=== PATIENT | male | born 1975 | race Asian ===

== ENCOUNTER 2018-08-28 04:00 | Inpatient (IN) | payer MEDICAID, OTHER ==
[~2018-08-28] VITALS: Ht 180.3 cm; Wt 172.4 kg
[~2018-08-28 04:00] MED LIST: ALLOPURINOL300 M1 ORAL; INDOMETHACIN75 MG ORAL; MEDROL DOSEPAK4 MG ORAL; NICODERM 21MG/241 EA TDERMAL; NORCO 5-325 TA1 EACH ORAL; RANITIDINE HCL150 MG ORAL
[2018-08-28 04:26] VITALS: BP 123/81
[2018-08-28] MEDS ORDERED: HYDROmorphone 1mg/ml Carpuject IVP ONE (04:45)
[2018-08-28 05:40] LABS: ANION GAP 7 mmol/L (5-15); BLOOD UREA NITROGEN 7 mg/dL (7-18); CALCIUM 8.2 MG/DL (8.5-10.1); CARBON DIOXIDE 27 MMOL/L (21-32); CHLORIDE 101 MMOL/L (98-107); CREATININE 0.7 MG/DL (0.55-1.30); POTASSIUM 3.6 MMOL/L (3.5-5.1); SODIUM 135 MMOL/L (136-145)
[2018-08-28 05:44] LABS: ALANINE AMINOTRANSFERASE 19 U/L (12-78); ALBUMIN 1.6 G/DL (3.4-5.0); ALKALINE PHOSPHATASE 88 U/L (46-116); ASPARTATE AMINO TRANSFERASE 16 U/L (15-37); BASOPHILS % (AUTO) 1.2 % (0.0-2.0); BILIRUBIN,TOTAL 0.8 MG/DL (0.2-1.0); EOSINOPHILS % (AUTO) 2.6 % (0.0-3.0); HEMATOCRIT 44.2 % (42.0-52.0); HEMOGLOBIN 14.8 G/DL (14.2-18.0); MEAN CORPUSCULAR VOLUME 90 FL (80-99); MONOCYTES % (AUTO) 9.1 % (1.0-10.0); NEUTROPHILS % (AUTO) 65.1 % (45.0-75.0); PLATELET COUNT 314 K/UL (150-450); RED BLOOD COUNT 4.92 M/UL (4.70-6.10); WHITE BLOOD COUNT 12.4 K/UL (4.8-10.8)
[2018-08-28] MEDS ORDERED: Solu-MEDROL 125mg Inj IVP ONE (06:30)
[2018-08-28] MEDS ORDERED: Indomethacin 75 MG CAPSULE.ER ORAL ONE (06:30)
[2018-08-28] MEDS ORDERED: Piperacillin/Tazobactam 3.375 GM in NS 110 ML IVPB ONE (06:30)
[2018-08-28] MEDS ORDERED: Indomethacin 25mg cap ONE (06:36)
--- NOTE | 2018-08-28 06:39 | Emergency Room Report ---
History of Present Illness General Chief Complaint: Edema Source: Patient Present Illness HPI 43-year-old male presents ED for evaluation. Complaining of bilateral leg pain and swelling. Started last night. History of gout. States that he has history of gout in both ankles. States he's experiencing a flareup. Pain is sharp, 10 out of 10, nonradiating. Patient states that he was taken off indomethacin by his PMD. Patient states it is too painful to walk at this time. Denies fevers chills. No other aggravating relieving factors. Denies any other associated symptoms Allergies: Coded Allergies: NO KNOWN ALLERGIES (Unverified Allergy, Unknown, 07/06/15) Patient History Past Medical History: HTN, other - gout Past Surgical History: none Pertinent Family History: none Social History: Denies: smoking, alcohol use, drug use Reviewed Nursing Documentation: PMH: Agreed; PSxH: Agreed Nursing Documentation-PMH Hx Cardiac Problems: Yes - HTN Hx Hypertension: Yes Review of Systems All Other Systems: negative except mentioned in HPI Physical Exam Vital Signs Date Time Temp Pulse Resp B/P (MAP) Pulse Ox O2 Delivery O2 Flow Rate FiO2 08/28/18 04:19 98.1 127 18 120/80 99 Room Air Sp02 EP Interpretation: reviewed, normal General Appearance: alert, GCS 15, non-toxic, mild distress, obese Head: normocephalic, atraumatic Eyes: bilateral eye normal inspection, bilateral eye PERRL ENT: hearing grossly normal, normal pharynx, no angioedema, normal voice Neck: full range of motion, supple/symm/no masses Respiratory: chest non-tender, lungs clear, normal breath sounds, speaking full sentences Cardiovascular #1: regular rate, rhythm, no edema Cardiovascular #2: 2+ carotid (R), 2+ carotid (L), 2+ radial (R), 2+ radial (L) , 2+ dorsalis pedis (R), 2+ dorsalis pedis (L) Gastrointestinal: normal bowel sounds, non tender, soft, non-distended, no guarding, no rebound Rectal: deferred Genitourinary: normal inspection, no CVA tenderness Musculoskeletal: back normal, gait/station normal, normal range of motion, swelling, tender Neurologic: alert, oriented x3, responsive, motor strength/tone normal, sensory intact, speech normal Psychiatric: judgement/insight normal, memory normal, mood/affect normal, no suicidal/homicidal ideation Reflexes: 3+ bicep (R), 3+ bicep (L), 3+ tricep (R), 3+ tricep (L), 3+ knee (R) , 3+ knee (L) Skin: other - bialteral lower extremity erythema Lymphatic: no adenopathy Medical Decision Making Diagnostic Impression: Primary Impression: Gouty arthritis Additional Impressions: Gout flare Qualified Codes: M10.9 - Gout, unspecified Intractable pain Unable to ambulate ER Course Hospital Course 43-year-old male presents to ED with redness, swelling to bilateral lower extermities Differential diagnoses include: Cellulitis, DVT, abscess, rash. Clinical course Patient placed on stretcher. After initial history and physical I ordered labs , blood Cx, pain meds labs reviewed - leukocytosis, Hb/Hct stable, no electrolyte abnormalities. CRP elevated. ESR pending. Uric acid normal Doppler US - pending (also ordered in 2015 however were negative at the time) antibiotics given. Leukocytosis likely secondary to pain. Patient admitted here in 2014 for similar presentation. Patient given IV Dilaudid, Solu-Medrol, indomethacin here. patient still unable to ambulate secondary to pain Case discussed with Dr Phan and he agreed to accept the patient to his service for further care and support Diagnosis - gouty arthritis, gout flare, intractable pain, unable to ambulate Patient admitted to floor in serious condition Labs Test 08/28/18 05:00 White Blood Count 12.4 K/UL (4.8-10.8) Red Blood Count 4.92 M/UL (4.70-6.10) Hemoglobin 14.8 G/DL (14.2-18.0) Hematocrit 44.2 % (42.0-52.0) Mean Corpuscular Volume 90 FL (80-99) Mean Corpuscular Hemoglobin 30.0 PG (27.0-31.0) Mean Corpuscular Hemoglobin Concent 33.4 G/DL (32.0-36.0) Red Cell Distribution Width 13.0 % (11.6-14.8) Platelet Count 314 K/UL (150-450) Mean Platelet Volume 5.9 FL (6.5-10.1) Neutrophils (%) (Auto) 65.1 % (45.0-75.0) Lymphocytes (%) (Auto) 22.0 % (20.0-45.0) Monocytes (%) (Auto) 9.1 % (1.0-10.0) Eosinophils (%) (Auto) 2.6 % (0.0-3.0) Basophils (%) (Auto) 1.2 % (0.0-2.0) Sodium Level 135 MMOL/L (136-145) Potassium Level 3.6 MMOL/L (3.5-5.1) Chloride Level 101 MMOL/L (98-107) Carbon Dioxide Level 27 MMOL/L (21-32) Anion Gap 7 mmol/L (5-15) Blood Urea Nitrogen 7 mg/dL (7-18) Creatinine 0.7 MG/DL (0.55-1.30) Estimat Glomerular Filtration Rate > 60 mL/min (>60) Glucose Level 113 MG/DL (74-106) Uric Acid 5.1 MG/DL (2.6-7.2) Calcium Level 8.2 MG/DL (8.5-10.1) Total Bilirubin 0.8 MG/DL (0.2-1.0) Aspartate Amino Transf (AST/SGOT) 16 U/L (15-37) Alanine Aminotransferase (ALT/SGPT) 19 U/L (12-78) Alkaline Phosphatase 88 U/L (46-116) C-Reactive Protein, Quantitative 15.3 mg/dL (0.00-0.90) Total Protein 6.5 G/DL (6.4-8.2) Albumin 1.6 G/DL (3.4-5.0) Globulin 4.9 g/dL Last Vital Signs Date Time Temp Pulse Resp B/P (MAP) Pulse Ox O2 Delivery O2 Flow Rate FiO2 08/28/18 04:19 98.1 127 18 120/80 99 Room Air Status: improved Disposition: ADMITTED INPATIENT Condition: Serious Referrals: [facility],REFERRING (PCP) Adan Sharp MD Aug 28, 2018 06:39
[2018-08-28 07:25] VITALS: BP 130/82
[2018-08-28 08:00] VITALS: BP 123/82
[2018-08-28] MEDS ORDERED: Miralax 17gm pkt ORAL PRN (08:15)
--- NOTE | 2018-08-28 08:36 | History and Physical ---
History of Present Illness General Date patient seen: Aug 28, 2018 Time patient seen: 07:30 Reason for Hospitalization: Edema Present Illness HPI 43 year old man with obesity, nephrotic syndrome, gout who presents with bilateral ankle pain, progressing for 1 week, similar to prior gout flares. Pain is severe 10/10 causing inability to ambulate. He reports subjective fever related to pain. He reports being taken off indomethacin 1 month ago by his doctor due to concern for side effects. In ED he was given Solu-Medrol, Zosyn, Indocin and referred for admission. PMHx: Obesity, nephrotic syndrome Social: Current smoker Family Hx: No history of CAD, stroke Allergies: Coded Allergies: NO KNOWN ALLERGIES (Unverified Allergy, Unknown, 07/06/15) Medication History Scheduled Allopurinol* (Allopurinol*), 300 MG ORAL DAILY Indomethacin* (Indomethacin*), 75 MG ORAL TWICE A DAY Methylprednisolone (Methylprednisolone*), 4 MG ORAL .as directed Nicotine (Nicotine Patch), 1 PATCH TDERMAL Q24H Ranitidine Hcl* (Zantac*), 150 MG ORAL BEDTIME Scheduled PRN Hydrocodone Bit/Acetaminophen 5-325* ([place] 5-325*), 1 TAB ORAL Q6H PRN for For Pain Patient History Healthcare decision maker Resuscitation status Advanced Directive on File Review of Systems Constitutional: Reports: fever Eye: Denies: eye pain ENT: Denies: ear pain Respiratory: Denies: cough, orthopnea, shortness of breath Cardiovascular: Denies: chest pain Gastrointestinal: Denies: abdominal pain Genitourinary: Denies: discharge, dysuria Musculoskeletal: Reports: gout; Denies: back pain Skin: Denies: rash Psychiatric: Denies: anxiety Neurological: Denies: headache, numbness Hematologic/Lymphatic: Denies: anemia Physical Exam General Appearance: no apparent distress, alert HEENT: normocephalic, atraumatic Neck: non-tender, normal alignment Respiratory/Chest: chest wall non-tender, lungs clear, normal breath sounds Cardiovascular/Chest: normal peripheral pulses, normal rate, regular rhythm Abdomen: normal bowel sounds, non tender Extremities: other - Bilateral ankle edema and tenderness Skin Exam: warm/dry Neurologic: pest controller II-XII grossly normal, no motor/sensory deficits Last 24 Hour Vital Signs Date Time Temp Pulse Resp B/P (MAP) Pulse Ox O2 Delivery O2 Flow Rate FiO2 08/28/18 07:40 98.1 108 18 130/82 99 Room Air 08/28/18 07:25 98.1 108 18 130/82 99 Room Air 08/28/18 05:54 98.1 08/28/18 04:26 98.1 120 18 123/81 99 Room Air 120 08/28/18 04:26 120 18 Room Air 08/28/18 04:19 98.1 127 18 120/80 99 Room Air Laboratory Tests Test 08/28/18 05:00 White Blood Count 12.4 K/UL (4.8-10.8) H Red Blood Count 4.92 M/UL (4.70-6.10) Hemoglobin 14.8 G/DL (14.2-18.0) Hematocrit 44.2 % (42.0-52.0) Mean Corpuscular Volume 90 FL (80-99) Mean Corpuscular Hemoglobin 30.0 PG (27.0-31.0) Mean Corpuscular Hemoglobin Concent 33.4 G/DL (32.0-36.0) Red Cell Distribution Width 13.0 % (11.6-14.8) Platelet Count 314 K/UL (150-450) Mean Platelet Volume 5.9 FL (6.5-10.1) L Neutrophils (%) (Auto) 65.1 % (45.0-75.0) Lymphocytes (%) (Auto) 22.0 % (20.0-45.0) Monocytes (%) (Auto) 9.1 % (1.0-10.0) Eosinophils (%) (Auto) 2.6 % (0.0-3.0) Basophils (%) (Auto) 1.2 % (0.0-2.0) Erythrocyte Sedimentation Rate 23 MM/HR (0-15) H Sodium Level 135 MMOL/L (136-145) L Potassium Level 3.6 MMOL/L (3.5-5.1) Chloride Level 101 MMOL/L (98-107) Carbon Dioxide Level 27 MMOL/L (21-32) Anion Gap 7 mmol/L (5-15) Blood Urea Nitrogen 7 mg/dL (7-18) Creatinine 0.7 MG/DL (0.55-1.30) Estimat Glomerular Filtration Rate > 60 mL/min (>60) Glucose Level 113 MG/DL (74-106) H Uric Acid 5.1 MG/DL (2.6-7.2) Calcium Level 8.2 MG/DL (8.5-10.1) L Total Bilirubin 0.8 MG/DL (0.2-1.0) Aspartate Amino Transf (AST/SGOT) 16 U/L (15-37) Alanine Aminotransferase (ALT/SGPT) 19 U/L (12-78) Alkaline Phosphatase 88 U/L (46-116) C-Reactive Protein, Quantitative 15.3 mg/dL (0.00-0.90) H Total Protein 6.5 G/DL (6.4-8.2) Albumin 1.6 G/DL (3.4-5.0) L Globulin 4.9 g/dL Height (Feet): 5 Height (Inches): 11.00 Weight (Pounds): 380 Assessment/Plan Assessment/Plan #Acute gouty arthritis -admit to medical service -start prednisone 20mg PO bid -continue allopurinol -avoid NSAIDS given history of renal disease -supportive care -Dilaudid for severe pain. -hold antibiotics as lower suspicion for cellulitis #Reported nephrotic syndrome #Obesity -continue to monitor renal function VTE PPx heparin SC Full Code I spent 70 minutes on this patient's case, and~37~minutes was dedicated to counseling and/or care coordination. Jey Gr MD Aug 28, 2018 08:36
[2018-08-28] MEDS: Docusate 100mg cap ORAL SCH ×2 (09:27→20:20)
[2018-08-28] MEDS: Heparin 5000 units/ml inj SUBQ SCH ×2 (09:37→20:20)
[2018-08-28 12:00] VITALS: BP 124/67
[2018-08-28 16:00] VITALS: BP 132/89
[2018-08-28 20:00] VITALS: BP 123/62
[2018-08-29] VITALS: BP 142/80
[2018-08-29 04:00] VITALS: BP 150/60
[2018-08-29 07:09] LABS: HEMATOCRIT 43.2 % (42.0-52.0); HEMOGLOBIN 14.6 G/DL (14.2-18.0); MEAN CORPUSCULAR VOLUME 89 FL (80-99); PLATELET COUNT 347 K/UL (150-450); RED BLOOD COUNT 4.84 M/UL (4.70-6.10); RED CELL DISTRIBUTION WIDTH 12.8 % (11.6-14.8); WHITE BLOOD COUNT 17.9 K/UL (4.8-10.8)
[2018-08-29 07:13] LABS: ANION GAP 8 mmol/L (5-15); CALCIUM 9.2 MG/DL (8.5-10.1); CARBON DIOXIDE 26 MMOL/L (21-32); CHLORIDE 102 MMOL/L (98-107); POTASSIUM 4.6 MMOL/L (3.5-5.1); SODIUM 136 MMOL/L (136-145)
[2018-08-29 07:26] LABS: BLOOD UREA NITROGEN 26 mg/dL (7-18)
[2018-08-29 08:00] VITALS: BP 96/60
[2018-08-29] MEDS: Docusate 100mg cap ORAL SCH (08:19)
[2018-08-29] MEDS: HYDROmorphone 1mg/ml Carpuject IVP PRN ×2 (08:20→15:10)
[2018-08-29] MEDS: Heparin 5000 units/ml inj SUBQ SCH (08:29)
[2018-08-29] MEDS ORDERED: Artificial Tears 1.4% Op Soln BOTH EYES PRN (08:30)
[2018-08-29 12:00] VITALS: BP 126/75
--- NOTE | 2018-08-29 15:27 | Discharge Summary ---
Discharge Summary Hospital Course Date of Admission Aug 28, 2018 at 05:47 Date of Discharge 08/29/18 Admitting Diagnosis gouty flare, intractable pain HPI Deonte Grider is a 43 year old male who was admitted on Aug 28, 2018 at 05:47 for Gouty Flare,Intractable Pain Hospital Course #Acute gouty arthritis -admitted to medical service -treated with prednisone 20mg PO bid with rapid improvement in symptoms -continued allopurinol -avoided NSAIDS given history of renal disease -supportive care -Dilaudid for severe pain -> transitioned to Percocet #Reported nephrotic syndrome #Obesity -stable renal function Stable for discharge home Discharge Discharge Disposition Patient was discharged to Jey Gr MD Aug 29, 2018 15:27
[2018-08-29 16:00] VITALS: BP 96/75
== END 2018-08-29 16:32 | disposition home or self-care (01) | DRG 351 ==
LOC: EMR 04:31 → 4E 05:47 → EDBEDREQ 06:07
DX: M10.9 Gout, unspecified (principal); Z68.43 Body mass index [BMI] 50.0-59.9, adult; E66.9 Obesity, unspecified
CPT/HCPCS: 36415; 80048; 80053; 84550; 85007; 85025; 85651; 86140; 87040; 93970

== ENCOUNTER 2018-10-02 17:54 | Inpatient (IN) | payer OTHER ==
[~2018-10-02] VITALS: Ht 177.8 cm; Wt 160.6 kg
--- NOTE | 2018-10-02 18:12 | NUR ---
ED Nurse Note: PT WALKED IN TO ER TODAY FROM HOME. AOX4. PT C/O UPPER MEDIAL ABDOMINAL PAIN, 02/28, X THIS AM. PT ALSO C/O NAUSEA BUT DENIES VOMITING. PT STATES HE HAS ALSO HAD 2 EPSIDOES OF DIARRHEA X LAST NIGHT, LAST EPISODE X 2 HOURS AGO. ACTIVE BOWEL SOUNDS IN ALL QUADRANTS. ABDOMEN NONDISTENDED AND NONTENDER TO PALPATION.
[2018-10-02 18:13] VITALS: BP 136/88
[2018-10-02] MEDS ORDERED: Metoclopramide 10mg/2ml Inj IVP ONE (18:15)
[2018-10-02] MEDS ORDERED: Morphine Sulfate 4mg/ml Inj (IV USE ONLY) IVP ONE (18:15)
[2018-10-02] MEDS ORDERED: DiphenhydrAMINE 50mg/ml Inj IVP ONE (18:15)
[2018-10-02 18:53] LABS: BASOPHILS % (AUTO) 1.7 % (0.0-2.0); EOSINOPHILS % (AUTO) 0.8 % (0.0-3.0); HEMATOCRIT 41.6 % (42.0-52.0); HEMOGLOBIN 13.8 G/DL (14.2-18.0); LYMPHOCYTES % (AUTO) 30.6 % (20.0-45.0); MEAN CORPUSCULAR VOLUME 89 FL (80-99); MONOCYTES % (AUTO) 7.6 % (1.0-10.0); NEUTROPHILS % (AUTO) 59.4 % (45.0-75.0); PLATELET COUNT 408 K/UL (150-450); WHITE BLOOD COUNT 12.3 K/UL (4.8-10.8)
[2018-10-02] MEDS: Sodium Chloride 550 ML IV SCH ×2 (18:55→20:35)
[2018-10-02 19:00] LABS: ANION GAP 3 mmol/L (5-15); BLOOD UREA NITROGEN 37 mg/dL (7-18); CALCIUM 7.9 MG/DL (8.5-10.1); CARBON DIOXIDE 28 MMOL/L (21-32); CHLORIDE 104 MMOL/L (98-107); CREATININE 1.2 MG/DL (0.55-1.30); POTASSIUM 4.2 MMOL/L (3.5-5.1); SODIUM 135 MMOL/L (136-145)
[2018-10-02 19:04] LABS: ALANINE AMINOTRANSFERASE 16 U/L (12-78); ALBUMIN/GLOBULIN RATIO 0.2 (1.0-2.7); ALKALINE PHOSPHATASE 74 U/L (46-116); ASPARTATE AMINO TRANSFERASE 30 U/L (15-37); BILIRUBIN,TOTAL 0.2 MG/DL (0.2-1.0); CREATINE KINASE 117 U/L (26-308)
--- NOTE | 2018-10-02 20:09 | Emergency Room Report ---
History of Present Illness General Chief Complaint: Abdominal Pain Source: Patient, Medical Record Present Illness HPI Patient presents with severe epigastric pain. The patient has a history of nephrotic syndrome. He states that he has had episodes of abdominal pain like this in the past related to his nephrotic syndrome. Denies any vomiting but he feels nauseated.. He's had constipation that he states today there was tenderness slight amount of blood. He denies fevers. In the past the patient had a clots in his legs. He only takes aspirin at this time. He denies any hemoptysis or pleuritic chest pain. He does have increased edema over the last few days. Patient admitted last month for flare of gout pain. Admitted 2015: 1. Acute gout attack 2. Gouty arthritis. 3. Intractable pain, right ankle. 4. Leukocytosis secondary to gout flare. 5. Hypertension. 6. Inability to ambulate, improved. 7. Cigarette smoker. 8. Obstructive sleep apnea. Allergies: Coded Allergies: NO KNOWN ALLERGIES (Unverified Allergy, Unknown, 07/06/15) Patient History Past Medical History: see triage record Social History: Reports: drug use Reviewed Nursing Documentation: PMH: Agreed; PSxH: Agreed Nursing Documentation-PMH Past Medical History: No History, Except For Hx Cardiac Problems: Yes - HTN Hx Hypertension: Yes Hx Neurological Problems: No - gout Review of Systems All Other Systems: negative except mentioned in HPI Physical Exam Vital Signs Date Time Temp Pulse Resp B/P (MAP) Pulse Ox O2 Delivery O2 Flow Rate FiO2 10/02/18 17:59 97.5 111 18 139/86 98 Room Air Sp02 EP Interpretation: reviewed, normal General Appearance: mild distress - Due to pain, obese Head: normocephalic Eyes: bilateral eye normal inspection, bilateral eye PERRL, bilateral eye EOMI ENT: moist mucus membranes Neck: supple Respiratory: lungs clear, normal breath sounds Cardiovascular #1: regular rate, rhythm, edema - Bilaterally 2-3+ Cardiovascular #2: 2+ radial (R) Gastrointestinal: normal inspection, normal bowel sounds, non-distended, no guarding, no rebound, tenderness - Epigastric, overweight Genitourinary: no CVA tenderness Musculoskeletal: back normal, normal range of motion, no calf tenderness, Ashok 's Sign negative Neurologic: alert, oriented x3, grossly normal Psychiatric: anxious Skin: warm/dry, other - Erythema bilateral ankles Medical Decision Making Diagnostic Impression: Primary Impression: Abdominal pain Qualified Codes: R10.13 - Epigastric pain Additional Impressions: Nephrotic syndrome Edema Qualified Codes: R60.9 - Edema, unspecified Elevated uric acid in blood BMI 50.0-59.9, adult ER Course Patient presents with epigastric pain. Differential includes gastritis, pancreatitis, GERD, diverticulitis amongst others. We need to exclude cardiac cause. Evaluation with EKG, chest x-ray and labs. We need to exclude pulmonary embolism and DVT with noninvasive vascular studies. The patient will be treated with gentle IV hydration and analgesia. Treated with Reglan and Pepcid. Difficult and complex patient due to multiple underlying disease processes and morbid obesity. EKG without injury. Chest x-ray no infiltrates and normal heart size. Labs with elevated white count. Elevated uric acid. Low protein/albumin. Patient sleeping after initial dose of morphine. Abdomen is nonsurgical at this time. Patient diuresing. He requests more morphine. Small dose is given. Patient sleeping after second dose of morphine. Patient admitted to medical floor Dr. Cohen. Laboratory Tests Test 10/02/18 18:29 10/02/18 21:19 10/02/18 21:20 White Blood Count 12.3 K/UL (4.8-10.8) H Red Blood Count 4.70 M/UL (4.70-6.10) Hemoglobin 13.8 G/DL (14.2-18.0) L Hematocrit 41.6 % (42.0-52.0) L Mean Corpuscular Volume 89 FL (80-99) Mean Corpuscular Hemoglobin 29.4 PG (27.0-31.0) Mean Corpuscular Hemoglobin Concent 33.2 G/DL (32.0-36.0) Red Cell Distribution Width 13.0 % (11.6-14.8) Platelet Count 408 K/UL (150-450) Mean Platelet Volume 4.5 FL (6.5-10.1) L Neutrophils (%) (Auto) 59.4 % (45.0-75.0) Lymphocytes (%) (Auto) 30.6 % (20.0-45.0) Monocytes (%) (Auto) 7.6 % (1.0-10.0) Eosinophils (%) (Auto) 0.8 % (0.0-3.0) Basophils (%) (Auto) 1.7 % (0.0-2.0) Sodium Level 135 MMOL/L (136-145) L Potassium Level 4.2 MMOL/L (3.5-5.1) Chloride Level 104 MMOL/L (98-107) Carbon Dioxide Level 28 MMOL/L (21-32) Anion Gap 3 mmol/L (5-15) L Blood Urea Nitrogen 37 mg/dL (7-18) H Creatinine 1.2 MG/DL (0.55-1.30) Estimate Glomerular Filtration Rate > 60 mL/min (>60) Glucose Level 121 MG/DL (74-106) H Uric Acid 11.3 MG/DL (2.6-7.2) H Calcium Level 7.9 MG/DL (8.5-10.1) L Total Bilirubin 0.2 MG/DL (0.2-1.0) Aspartate Amino Transferase (AST) 30 U/L (15-37) Alanine Aminotransferase (ALT) 16 U/L (12-78) Alkaline Phosphatase 74 U/L (46-116) Total Creatine Kinase 117 U/L (26-308) Troponin I 0.001 ng/mL (0.000-0.056) Total Protein 5.2 G/DL (6.4-8.2) L Albumin 1.0 G/DL (3.4-5.0) L Globulin 4.2 g/dL Albumin/Globulin Ratio 0.2 (1.0-2.7) L Lipase 201 U/L (73-393) Urine Color Pale yellow Urine Appearance Clear Urine pH 5 (4.5-8.0) Urine Specific [place] 1.015 (1.005-1.035) Urine Protein 4+ (NEGATIVE) H Urine Glucose (UA) Negative (NEGATIVE) Urine Ketones Negative (NEGATIVE) Urine Blood Negative (NEGATIVE) Urine Nitrite Negative (NEGATIVE) Urine Bilirubin Negative (NEGATIVE) Urine Urobilinogen Normal MG/DL (0.0-1.0) Urine Leukocyte Esterase Negative (NEGATIVE) Urine RBC 0-2 /HPF (0 - 0) H Urine WBC 0-2 /HPF (0 - 0) Urine Squamous Epithelial Cells None /LPF (NONE/OCC) Urine Bacteria Moderate /HPF (NONE) H Prothrombin Time 10.0 SEC (9.30-11.50) Prothrombin Time INR 0.9 (0.9-1.1) PTT 32 SEC (23-33) EKG Diagnostic Results Rate: tachycardiac Rhythm: NSR ST Segments: no acute changes Rhythm Strip Diag. Results EP Interpretation: yes Rhythm: no PVC's, no ectopy, other - ST Chest X-Ray Diagnostic Results Chest X-Ray Diagnostic Results : Chest X-Ray Ordered: Yes # of Views/Limited/Complete: 1 View Indication: Other Interpretation: no consolidation, no effusion, no pneumothorax Impression: No acute disease Electronically Signed by: Electronically signed by Caesar Salinas MD Last Vital Signs Date Time Temp Pulse Resp B/P (MAP) Pulse Ox O2 Delivery O2 Flow Rate FiO2 10/02/18 18:13 104 20 Room Air 10/02/18 18:13 97.9 136/88 99 Status: improved Disposition: ADMITTED INPATIENT Condition: Serious Referrals: [facility],REFERRING (PCP) Caesar Salinas MD Oct 02, 2018 20:09
[2018-10-02 20:13] VITALS: BP 132/86
[2018-10-02] MEDS ORDERED: PREDNISONE20 MG ORAL (20:13)
--- NOTE | 2018-10-02 20:29 | NUR ---
ED Nurse Note: LAB CALLED FOR BLOOD DRAW. ETA 15 MINUTES.
--- NOTE | 2018-10-02 21:29 | NUR ---
ED Nurse Note: [facility] CALLED FOR PT TRANSFER. REPORT GIVEN TO IRMA KELLEY. PER RN, ROOM NEEDS 30-40 MORE MINUTES FOR CLEANING. WILL TRANSFER PT AT THAT TIME.
[2018-10-02] MEDS ORDERED: Morphine Sulfate 2mg/ml Inj(IV/IM USE ONLY) IVP ONE (21:30)
--- NOTE | 2018-10-02 21:38 | NUR ---
ED Nurse Note: REPORT GIVEN TO IRMA GOLD. IRMA GOLD AWARE REPORT ALREADY GIVEN TO IRMA KELLEY IN [facility].
[2018-10-02 21:54] LABS: APPEARANCE,URINE CLEAR; BILIRUBIN, URINE NEGATIVE (NEGATIVE); COLOR,URINE PALE YELLOW; GLUCOSE, URINE (UA) NEGATIVE (NEGATIVE); KETONES,URINE NEGATIVE (NEGATIVE); LEUKOCYTE ESTERASE ,URINE NEGATIVE (NEGATIVE); NITRITE,URINE NEGATIVE (NEGATIVE); PH,URINE 5 (4.5-8.0); PROTEIN,URINE 4+ (NEGATIVE); UROBILINOGEN,URINE NORMAL MG/DL (0.0-1.0)
[2018-10-02 22:18] LABS: INR 0.9 (0.9-1.1)
--- NOTE | 2018-10-02 22:30 | NUR ---
NURSE NOTES: Patient admitted from Er via gurney. Belongings verified. Patient is drowsy but aox4, arousable. IV is intact and patent. Skin intact except for old scars on bilateral lower extremities with edema. Oriented to new room and unit. Call light provided, urinal provided. Instructed to call for assistance.
[2018-10-02] MEDS ORDERED: INDOCIN75 MG ORAL (22:36)
[2018-10-02] MEDS ORDERED: ASPIRIN81 MG ORAL (22:36)
[2018-10-02] MEDS ORDERED: Morphine Sulfate 2mg/ml Inj(IV/IM USE ONLY) IVP PRN (23:15)
--- NOTE | 2018-10-02 23:15 | NUR ---
NURSE NOTES: Call placed to Dr. Cohen for admission orders at 2240. Received admission orders at 2315, read back. Will carry out orders. Patient currently sleeping with no acute distress
--- NOTE | 2018-10-02 23:50 | NUR ---
TRANSFER TO FLOOR: Patient transferred to [facility] surg, Report given to IRMA Aaron
[2018-10-03] VITALS: BP 108/75
[2018-10-03 04:00] VITALS: BP 114/67
[2018-10-03] MEDS: Morphine Sulfate 4mg/ml Inj (IV USE ONLY) IVP PRN ×2 (05:00→21:12)
--- NOTE | 2018-10-03 06:15 | NUR ---
NURSE NOTES: Patient c/o pain and requested for pain medication at 0500. morphine was pulled out but patient c/o pain on IV site. Multiple attempts were made by 3 RN's to start a new IV, unsuccessful. Patient went back to sleep and appears comfortable at this time. Will ask ICU/WOLF nurse to help with IV insertion.
[2018-10-03 07:04] LABS: ALANINE AMINOTRANSFERASE 17 U/L (12-78); ALBUMIN 1.1 G/DL (3.4-5.0); ALBUMIN/GLOBULIN RATIO 0.3 (1.0-2.7); ALKALINE PHOSPHATASE 70 U/L (46-116); ANION GAP 2 mmol/L (5-15); ASPARTATE AMINO TRANSFERASE 28 U/L (15-37); BILIRUBIN,TOTAL 0.2 MG/DL (0.2-1.0); BLOOD UREA NITROGEN 34 mg/dL (7-18); CALCIUM 7.9 MG/DL (8.5-10.1); CARBON DIOXIDE 30 MMOL/L (21-32); CHLORIDE 104 MMOL/L (98-107); CREATININE 1.1 MG/DL (0.55-1.30); POTASSIUM 4.4 MMOL/L (3.5-5.1); SODIUM 136 MMOL/L (136-145)
--- NOTE | 2018-10-03 07:10 | NUR ---
NURSE NOTES: Report received from outgoing RN, rounds made. Patient sleeping in semi-fowlers position in bed. No distress or SOB on RA. Left wrist heplock intact. Call light in reach, bed in lowest position. Will continue to monitor.
[2018-10-03 07:15] LABS: BASOPHILS % (AUTO) 1.4 % (0.0-2.0); EOSINOPHILS % (AUTO) 2.1 % (0.0-3.0); HEMATOCRIT 41.1 % (42.0-52.0); HEMOGLOBIN 13.7 G/DL (14.2-18.0); LYMPHOCYTES % (AUTO) 35.1 % (20.0-45.0); MEAN CORPUSCULAR VOLUME 90 FL (80-99); MONOCYTES % (AUTO) 11.3 % (1.0-10.0); NEUTROPHILS % (AUTO) 50.2 % (45.0-75.0); PLATELET COUNT 428 K/UL (150-450); RED BLOOD COUNT 4.59 M/UL (4.70-6.10); RED CELL DISTRIBUTION WIDTH 13.8 % (11.6-14.8); WHITE BLOOD COUNT 9.8 K/UL (4.8-10.8)
--- NOTE | 2018-10-03 07:37 | NUR ---
HAND-OFF: Report given to Sheyla SOLIS.
[2018-10-03 08:00] VITALS: BP 151/85
[2018-10-03] MEDS ORDERED: Heparin1,000 units/500ml Premix(Conc:2 units/ml) IV ONE (08:00)
[2018-10-03] MEDS ORDERED: Lidocaine 1% Plain 30 ml INJ ONE (08:00)
--- NOTE | 2018-10-03 08:41 | NUR ---
*-* INSURANCE *-* AVAILABLE CLINICALS HAVE BEE FAXED TO: [facility]:NIRANJAN P:[phone] F:[phone] Addendum: 10/03/18 at 0843 by RICH HENRY CM REF# [id number]
[2018-10-03] MEDS: Heparin 5000 units/ml inj SUBQ SCH ×3 (09:00→21:25)
[2018-10-03] MEDS: Aspirin Baby 81mg ORAL SCH ×2 (09:00→10:44)
--- NOTE | 2018-10-03 10:13 | Diagnostic Imaging Report ---
Indication: Bilateral leg pain Technique: Grayscale duplex images of the bilateral lower extremity veins Comparison: 08/28/2018 Findings: Exam is somewhat limited, as the calf veins could not be imaged due to patient body habitus and edema. Bilaterally, grayscale duplex images demonstrate no evidence of intraluminal thrombus. Normal phasic Doppler waveforms, demonstrating normal augmentation response and no evidence of valvular insufficiency. Normal compressibility of all deep venous structures. Impression: Negative for evidence of deep venous thrombosis bilaterally. Note inability to visualize the calf veins This agrees with the preliminary interpretation provided overnight by [facility] teleradiology service.
--- NOTE | 2018-10-03 11:40 | Diagnostic Imaging Report ---
Indication: Chest pain Technique: One view of the chest Comparison: none Findings: Lungs and pleural spaces are clear. Heart size is upper limits of normal. Impression: No acute process
--- NOTE | 2018-10-03 11:45 | Diagnostic Imaging Report ---
Indications: Needs long-term IV access Technique: Ultrasound confirms patent compressible left basilic left basilic vein. Total sterile technique, including sterile probe cover and sterile gel, hat, mask, sterile gown, large sterile drape, and preparation with 2% chlorhexidine utilized. Local anesthesia with 1% lidocaine. Under real-time ultrasound guidance, puncture basilic vein using 21-gauge needle, documented and archived, passage 0.018 guidewire under direct fluoroscopy, which was used to determine appropriate catheter length, exchange for 4 [place] peel-away sheath. 4 [place] Bard dual-lumen power PICC cut to 55 cm. It was inserted through the peel-away sheath. Peel-away sheath and guidewire removed. Catheter fixed to the skin. Both catheter ports aspirated and flushed. Patient tolerated procedure well, without immediate complication. Digital radiograph documents satisfactory catheter tip position, at the cavoatrial junction. Total fluoroscopy time 13.7 seconds . Total dose 3.12 mGy Total number of images: 1 Impression: Successful placement of left arm PICC under sonographic and fluoroscopic guidance, as described above.
[2018-10-03 12:00] VITALS: BP 130/87
--- NOTE | 2018-10-03 13:35 | Consultation ---
History of Present Illness General Date patient seen: Oct 03, 2018 Chief Complaint: Abdominal Pain Present Illness HPI 43 year old male with hx of nephrotic syndrome, morbid obesity, gout, presented to ER with CC of intractable N/V and abdominal pain. No fever, No chills. no diarrhea. Pt is admitted for further work up. Allergies: Coded Allergies: NO KNOWN ALLERGIES (Unverified Allergy, Unknown, 07/06/15) Medication History Scheduled Aspirin* (Aspirin*), 81 MG ORAL DAILY, (Reported) Prednisone* (Prednisone*), 60 MG ORAL DAILY, (Reported) Scheduled PRN Indomethacin (Indocin), Unknown Dose ORAL DAILY PRN for For Pain, (Reported) Patient History Healthcare decision maker Resuscitation status Full Code Advanced Directive on File Past Medical/Surgical History Past Medical/Surgical History: (1) Nephrotic syndrome (2) Unable to ambulate (3) DIVYA (obstructive sleep apnea) Review of Systems All Other Systems: negative except mentioned in HPI Physical Exam General Appearance: WD/WN Lines, tubes and drains: peripheral, central line, trach HEENT: normocephalic, atraumatic Neck: non-tender, normal alignment Respiratory/Chest: chest wall non-tender, lungs clear Breasts: no masses Cardiovascular/Chest: normal rate, regular rhythm Abdomen: normal bowel sounds Genitourinary/Rectal: normal genital exam Last 24 Hour Vital Signs Date Time Temp Pulse Resp B/P (MAP) Pulse Ox O2 Delivery O2 Flow Rate FiO2 10/03/18 10:38 Room Air 10/03/18 09:00 Room Air 10/03/18 08:00 97.6 112 19 151/85 (107) 96 10/03/18 04:00 97.4 111 18 114/67 (83) 98 10/03/18 00:00 97.2 110 18 108/75 (86) 100 10/02/18 23:45 98.2 85 16 132/86 100 Room Air 10/02/18 22:52 Room Air 10/02/18 20:13 98.2 92 16 132/86 100 Room Air 10/02/18 18:13 104 20 Room Air 10/02/18 18:13 97.9 104 20 136/88 99 Room Air 10/02/18 17:59 97.5 111 18 139/86 98 Room Air Intake and Output 10/02/18 10/03/18 19:00 07:00 Intake Total 1100 ml Balance 1100 ml Intake IV Total 1100 ml # Voids 1 1 Laboratory Tests Test 10/02/18 18:29 10/02/18 21:19 10/02/18 21:20 10/03/18 06:15 White Blood Count 12.3 K/UL (4.8-10.8) H 9.8 K/UL (4.8-10.8) Red Blood Count 4.70 M/UL (4.70-6.10) 4.59 M/UL (4.70-6.10) L Hemoglobin 13.8 G/DL (14.2-18.0) L 13.7 G/DL (14.2-18.0) L Hematocrit 41.6 % (42.0-52.0) L 41.1 % (42.0-52.0) L Mean Corpuscular Volume 89 FL (80-99) 90 FL (80-99) Mean Corpuscular Hemoglobin 29.4 PG (27.0-31.0) 29.9 PG (27.0-31.0) Mean Corpuscular Hemoglobin Concent 33.2 G/DL (32.0-36.0) 33.3 G/DL (32.0-36.0) Red Cell Distribution Width 13.0 % (11.6-14.8) 13.8 % (11.6-14.8) Platelet Count 408 K/UL (150-450) 428 K/UL (150-450) Mean Platelet Volume 4.5 FL (6.5-10.1) L 5.0 FL (6.5-10.1) L Neutrophils (%) (Auto) 59.4 % (45.0-75.0) 50.2 % (45.0-75.0) Lymphocytes (%) (Auto) 30.6 % (20.0-45.0) 35.1 % (20.0-45.0) Monocytes (%) (Auto) 7.6 % (1.0-10.0) 11.3 % (1.0-10.0) H Eosinophils (%) (Auto) 0.8 % (0.0-3.0) 2.1 % (0.0-3.0) Basophils (%) (Auto) 1.7 % (0.0-2.0) 1.4 % (0.0-2.0) Sodium Level 135 MMOL/L (136-145) L 136 MMOL/L (136-145) Potassium Level 4.2 MMOL/L (3.5-5.1) 4.4 MMOL/L (3.5-5.1) Chloride Level 104 MMOL/L (98-107) 104 MMOL/L (98-107) Carbon Dioxide Level 28 MMOL/L (21-32) 30 MMOL/L (21-32) Anion Gap 3 mmol/L (5-15) L 2 mmol/L (5-15) L Blood Urea Nitrogen 37 mg/dL (7-18) H 34 mg/dL (7-18) H Creatinine 1.2 MG/DL (0.55-1.30) 1.1 MG/DL (0.55-1.30) Estimat Glomerular Filtration Rate > 60 mL/min (>60) > 60 mL/min (>60) Glucose Level 121 MG/DL (74-106) H 91 MG/DL (74-106) Uric Acid 11.3 MG/DL (2.6-7.2) H Calcium Level 7.9 MG/DL (8.5-10.1) L 7.9 MG/DL (8.5-10.1) L Total Bilirubin 0.2 MG/DL (0.2-1.0) 0.2 MG/DL (0.2-1.0) Aspartate Amino Transf (AST/SGOT) 30 U/L (15-37) 28 U/L (15-37) Alanine Aminotransferase (ALT/SGPT) 16 U/L (12-78) 17 U/L (12-78) Alkaline Phosphatase 74 U/L (46-116) 70 U/L (46-116) Total Creatine Kinase 117 U/L (26-308) Troponin I 0.001 ng/mL (0.000-0.056) Total Protein 5.2 G/DL (6.4-8.2) L 5.2 G/DL (6.4-8.2) L Albumin 1.0 G/DL (3.4-5.0) L 1.1 G/DL (3.4-5.0) L Globulin 4.2 g/dL 4.1 g/dL Albumin/Globulin Ratio 0.2 (1.0-2.7) L 0.3 (1.0-2.7) L Lipase 201 U/L (73-393) Urine Color Pale yellow Urine Appearance Clear Urine pH 5 (4.5-8.0) Urine Specific [place] 1.015 (1.005-1.035) Urine Protein 4+ (NEGATIVE) H Urine Glucose (UA) Negative (NEGATIVE) Urine Ketones Negative (NEGATIVE) Urine Blood Negative (NEGATIVE) Urine Nitrite Negative (NEGATIVE) Urine Bilirubin Negative (NEGATIVE) Urine Urobilinogen Normal MG/DL (0.0-1.0) Urine Leukocyte Esterase Negative (NEGATIVE) Urine RBC 0-2 /HPF (0 - 0) H Urine WBC 0-2 /HPF (0 - 0) Urine Squamous Epithelial Cells None /LPF (NONE/OCC) Urine Bacteria Moderate /HPF (NONE) H Prothrombin Time 10.0 SEC (9.30-11.50) Prothromb Time International Ratio 0.9 (0.9-1.1) Activated Partial Thromboplast Time 32 SEC (23-33) Phosphorus Level 4.0 MG/DL (2.5-4.9) Magnesium Level 1.9 MG/DL (1.8-2.4) Microbiology Date/Time Source Procedure Growth Status 10/02/18 21:19 Urine,Clean Catch Urine Culture - Preliminary NO GROWTH Resulted Height (Feet): 5 Height (Inches): 10.00 Weight (Pounds): 354 Medications Current Medications Medications (Trade) Dose Ordered Sig/Luca Route PRN Reason Start Time Stop Time Status Last Admin Dose Admin Acetaminophen (Tylenol) 650 mg Q6H PRN ORAL FEVER T>100.5 10/02/18 23:15 11/01/18 23:14 Aspirin (ASA) 81 mg DAILY ORAL 10/03/18 09:00 11/02/18 08:59 10/03/18 10:44 Chlorhexidine Gluconate (Dulce Maria-Hex 2%) 1 applic DAILY@1999 TOPIC 10/03/18 20:00 11/02/18 19:59 Heparin Sodium (Porcine) (Heparin 5000 units/ml) 5,000 units EVERY 12 HOURS SUBQ 10/03/18 09:00 11/02/18 08:59 10/03/18 10:48 Morphine Sulfate (Morphine Sulfate) 2 mg Q4H PRN IVP MILD-MOD PAIN 1-6 10/02/18 23:15 10/09/18 23:14 Morphine Sulfate (Morphine Sulfate) 4 mg Q4H PRN IVP Severe Pain (Pain Scale 7-10) 10/02/18 23:15 10/09/18 23:14 Ondansetron HCl (Zofran) 4 mg Q4H PRN IVP Nausea & Vomiting 10/02/18 23:15 11/01/18 23:14 Prednisone (predniSONE) 20 mg DAILY ORAL 10/03/18 09:00 11/02/18 08:59 10/03/18 09:29 Assessment/Plan Problem List: (1) Abdominal pain ICD Codes: R10.9 - Unspecified abdominal pain SNOMED: 82483330, 932134188 Qualifiers: Qualified Codes: R10.13 - Epigastric pain (2) DIVYA (obstructive sleep apnea) ICD Codes: G47.33 - Obstructive sleep apnea (adult) (pediatric) SNOMED: 61234137 (3) HTN (hypertension) ICD Codes: I10 - Essential (primary) hypertension SNOMED: 95486566 (4) Nephrotic syndrome ICD Codes: N04.9 - Nephrotic syndrome with unspecified morphologic changes SNOMED: 20778988 (5) Edema ICD Codes: R60.9 - Edema, unspecified SNOMED: 325065107, 043597087 Qualifiers: Qualified Codes: R60.9 - Edema, unspecified Assessment/Plan npo or clear liquid GI evaluation symptomatic treatment check electrolytes dvt prophylaxis. Robe Fall MD Oct 03, 2018 13:35
--- NOTE | 2018-10-03 15:08 | Diagnostic Imaging Report ---
Indication: Abdominal pain Technique: Villalba-scale and duplex images of the upper abdomen were obtained. Doppler interrogation of the hepatic and pancreatic vessels Comparison: none Findings: Exam is limited due to patient body habitus Gallbladder is unremarkable, without stones, wall thickening, nor pericholecystic fluid. Sonographic Morrissey's sign is negative. Common bile duct measures 5 mm in diameter. No intrahepatic biliary ductal dilatation. Liver demonstrates diffusely increased echogenicity, consistent with diffuse hepatocellular disease, most likely fatty change. Area of focal sparing is seen in the usual location adjacent to the gallbladder fossa. Portal vein and hepatic veins are patent. Pancreas is unremarkable. Spleen is unremarkable. Left kidney measures 13.2 cm in length. Right kidney measures 12.7 cm length. Both kidneys demonstrate normal echogenicity. There is no hydronephrosis. No focal abnormality. The bladder is unremarkable . Non-aneurysmal abdominal aorta . Impression: Somewhat limited exam, as described Negative for gallstones or dilated bile ducts Liver demonstrates diffusely increased echogenicity, consistent with diffuse hepatocellular disease, most likely fatty change. No small area of focal sparing in the usual location , Kidneys, negative for hydronephrosis
[2018-10-03 16:00] VITALS: BP 129/86
--- NOTE | 2018-10-03 16:20 | NUR ---
NURSE NOTES: Patient sent for PICC line placement at 0955 via bed, patient aware of new order, consent signed, returned at 1038 via bed, in stable condition. Left upper arm double lumen PICC in place, dressing CDI, site asymptomatic. Flushed both lumens without difficulty. Will continue to monitor.
--- NOTE | 2018-10-03 16:22 | NUR ---
CASE MANAGEMENT:REVIEW 43 YR OLD MALE FROM HOME TO ER CC: ABDOMINAL PAIN W/NAUSEA AND DIARRHEA SI: ABDOMINAL PAIN. NEPHROTIC SYNDROME 97.6 111 18 139/86 98% ON RA WBC+12.3 CA-7.9 IS: IV REGLAN X1 IV PEPCID X1 IV MORPHINE X1 IV BENADRYL X1 IV LASIX CHEST XRAY : TO MED/SURG PLAN: NPO ABDOMINAL US
--- NOTE | 2018-10-03 17:45 | History & Physical ---
History and Physical History & Physicial Augie Cohen MD Oct 03, 2018 17:45
--- NOTE | 2018-10-03 18:26 | Consultation ---
Consult Note Consult Note asked to evaluate for NS management Patient has 4+ Proteinuria and HypoAlbuminemia 43 year old man with obesity, nephrotic syndrome, Patient presents with severe epigastric pain. The patient has a history of nephrotic syndrome. He states that he has had episodes of abdominal pain like this in the past related to his nephrotic syndrome. Denies any vomiting but he feels nauseated.. He's had constipation that he states today there was tenderness slight amount of blood. He denies fevers. In the past the patient had a clots in his legs. He only takes aspirin at this time. He denies any hemoptysis or pleuritic chest pain. He does have increased edema over the last few days. Patient admitted last month for flare of gout pain. Admitted 2014: 1. Acute gout attack 2. Gouty arthritis. 3. Intractable pain, right ankle. 4. Leukocytosis secondary to gout flare. 5. Hypertension. 6. Inability to ambulate, improved. 7. Cigarette smoker. 8. Obstructive sleep apnea. Allergies: NO KNOWN ALLERGIES (Unverified Allergy, Unknown, 07/06/15) Past Medical History: No History, Except For Hx Cardiac Problems: Yes - HTN Hx Hypertension: Yes Hx Neurological Problems: No - gout Assessment/Plan NS Edema Abdominal pain HTN 24 h urine proteins keep bp in check Hgb A1c kidney MARLENA per orders Aleks Pugh MD Oct 03, 2018 18:26
--- NOTE | 2018-10-03 19:45 | NUR ---
NURSE NOTES: Endorsed to oncoming RN, Lisandra, regarding new order for Elizabeth catheter insertion and 24 hour urine collection. Will obtain 24 hour urine collection container from laboratory.
--- NOTE | 2018-10-03 19:45 | NUR ---
HAND-OFF: Report given to Lisandra SOLIS.
[2018-10-03 20:00] VITALS: BP 112/77
--- NOTE | 2018-10-03 20:00 | NUR ---
NURSE NOTES: Received patient in bed. On RA, no SOB, no acute distress. L upper arm PICC line intact, patent with dry dressing. Bed in lowest position, locked, alarms on. Call light in reach. patient c/o abdominal pain, will follow up with pain med. Will start urine collection for protein at 2100.
--- NOTE | 2018-10-03 20:26 | NUR ---
NURSE NOTES: Patient refused F/C insertion for urine protein ordered by Dr Pugh. Patient states he prefer to use urinal. Instructions given to patient and reminded to use call light for time of urinal use. made aware.
[2018-10-03] MEDS: Dyna-Hex 2% Top Sol 2oz TOPIC SCH (21:12)
[2018-10-03] MEDS: Pantoprazole Inj IVP SCH (21:13)
--- NOTE | 2018-10-03 23:30 | NUR ---
NURSE NOTES: 24hr urine collection started at 2300.
[2018-10-04] VITALS: BP 109/72
--- NOTE | 2018-10-04 | History and Physical Report ---
DATE OF ADMISSION: 10/02/2018 CHIEF COMPLAINT: Epigastric pain. HISTORY OF PRESENT ILLNESS: This is a 43-year-old gentleman with past medical history significant for gout with gouty arthritis, history of hypertension, nephrotic syndrome, morbid obesity with history of obstructive sleep apnea, and chronic smoker, who presented to the hospital complaining about abdominal pain, mostly epigastric area associated with nausea and vomiting. The patient said that he has been diagnosed with nephrotic syndrome over the past 20 years, been on prednisone 60 mg at this time. The patient denies any chest pain. Denies any shortness of breath. Complained mild constipation. Shortly after initial evaluation in the emergency, the patient was admitted to the hospital with epigastric pain, possible due to the gastritis versus peptic ulcer disease. PAST MEDICAL HISTORY/PAST SURGICAL HISTORY: As above. History of gout with gouty arthritis, history of right ankle pain, hypertension, chronic smoker, morbid obesity, and nephrotic syndrome. MEDICATIONS: Medications at home are significant for aspirin 81 mg daily, prednisone 60 mg daily, and indomethacin as needed. ALLERGIES: No known drug allergies. SOCIAL HISTORY: The patient currently smokes half a pack cigarettes a day. Denies any substance abuse. FAMILY HISTORY: Noncontributory. REVIEW OF SYSTEMS: Mostly as above. Denies any dysuria or frequency. Complained about ankle edema. Denies any loss of consciousness. Denies any suicidal or homicidal ideation. PHYSICAL EXAMINATION: VITAL SIGNS: On admission, temperature is 97.5, pulse of 111, respirations 18, and blood pressure 139/86. GENERAL: The patient is awake, responsive, in no acute distress. HEAD AND NECK: Pupils equal and reactive to light. Extraocular movements intact. Neck was supple. No JVD. LUNGS: Good air entry. No wheezing or rales. Decreased in bases. HEART: S1 and S2. Regular rhythm. Distant heart sounds ABDOMEN: Soft. Not distended. Tender in the epigastric area. Morbidly obese. No rebound tenderness. No fluid shift. EXTREMITIES: No cyanosis or clubbing. There is +2 edema in bilateral lower extremities NEUROLOGIC: Cranial nerves II through XII grossly intact. Motor is 5/5 in all extremities. Gait is intact. RECTAL: Refused and deferred. GENITOURINARY: Refused and deferred. PSYCHIATRIC: Mood and affect is intact. LABORATORY AND DIAGNOSTIC DATA: On admission WBC of 12, hemoglobin 13, hematocrit 41, and platelets 408,000. Sodium 135, potassium 4.3, chloride 104, bicarbonate 28, BUN 37, creatinine 1.2, and glucose is 121. Uric acid is 11.3. Calcium is 7.9. Troponin 0.01. Total protein is 5.2. Lipase is 201. PT 10, INR 0.9, and PTT of 32. Urinalysis - +4 protein, 0 to 2 rbc, and moderate bacteria. The patient's abdominal ultrasound somewhat limited examination, shows that the kidney negative for hydronephrosis. Liver demonstrated diffuse increased echogenicity consistent with diffuse hepatocellular disease, mostly fatty changes. Small area of the focal sparing in the usual location. ASSESSMENT: 1. Abdominal pain, most likely epigastric area and possible due to the peptic ulcer versus gastritis. 2. Nephrotic syndrome. 3. Morbid obesity. 4. History of gout. 5. Hypertension. 6. Morbid obesity. 7. Obstructive sleep apnea. PLAN: 1. Admit the patient to Med/Surg. 2. We will start the patient on clear liquid diet and advance as tolerated. 3. DVT prophylaxis. 4. Heparin subcutaneous. 5. Protonix 40 mg b.i.d. 6. Discussed case with from Pulmonary Critical Care. 7. Monitor laboratory closely. 8. Resume home medication. Augie Cohen M.D. DR: BENNETT JOB#: [id number] CC:
[2018-10-04 04:00] VITALS: BP 105/72
[2018-10-04 04:56] LABS: BASOPHILS % (AUTO) 0.8 % (0.0-2.0); EOSINOPHILS % (AUTO) 1.5 % (0.0-3.0); HEMATOCRIT 40.4 % (42.0-52.0); HEMOGLOBIN 13.3 G/DL (14.2-18.0); MEAN CORPUSCULAR VOLUME 90 FL (80-99); MONOCYTES % (AUTO) 8.6 % (1.0-10.0); NEUTROPHILS % (AUTO) 49.1 % (45.0-75.0); PLATELET COUNT 420 K/UL (150-450); RED BLOOD COUNT 4.48 M/UL (4.70-6.10); RED CELL DISTRIBUTION WIDTH 13.5 % (11.6-14.8); WHITE BLOOD COUNT 7.1 K/UL (4.8-10.8)
[2018-10-04 05:08] LABS: ALANINE AMINOTRANSFERASE 15 U/L (12-78); ALBUMIN/GLOBULIN RATIO 0.3 (1.0-2.7); ALKALINE PHOSPHATASE 60 U/L (46-116); ANION GAP 2 mmol/L (5-15); ASPARTATE AMINO TRANSFERASE 19 U/L (15-37); BILIRUBIN,TOTAL 0.3 MG/DL (0.2-1.0); BLOOD UREA NITROGEN 24 mg/dL (7-18); CALCIUM 7.7 MG/DL (8.5-10.1); CARBON DIOXIDE 31 MMOL/L (21-32); CHLORIDE 103 MMOL/L (98-107); CHOLESTEROL 329 MG/DL (< 200); CREATININE 0.9 MG/DL (0.55-1.30); GAMMA GLUTAMYL TRANSPEPTIDASE 31 U/L (5-85); HDL CHOLESTEROL 51 MG/DL (40-60); PHOSPHORUS 4.1 MG/DL (2.5-4.9); POTASSIUM 4.1 MMOL/L (3.5-5.1); SODIUM 136 MMOL/L (136-145); TRIGLYCERIDES 205 MG/DL (30-150)
--- NOTE | 2018-10-04 07:45 | NUR ---
HAND-OFF: Report given to Caesar SOLIS.
--- NOTE | 2018-10-04 07:48 | General Progress Note ---
Assessment/Plan Problem List: (1) Cigarette smoker ICD Codes: F17.210 - Nicotine dependence, cigarettes, uncomplicated SNOMED: 51562014 (2) Abdominal pain ICD Codes: R10.9 - Unspecified abdominal pain SNOMED: 73096554, 078377978 Qualifiers: Qualified Codes: R10.13 - Epigastric pain (3) Nephrotic syndrome ICD Codes: N04.9 - Nephrotic syndrome with unspecified morphologic changes SNOMED: 64912346 (4) HTN (hypertension) ICD Codes: I10 - Essential (primary) hypertension SNOMED: 34089173 (5) DIVYA (obstructive sleep apnea) ICD Codes: G47.33 - Obstructive sleep apnea (adult) (pediatric) SNOMED: 40534695 (6) Gouty arthritis ICD Codes: M10.9 - Gout, unspecified SNOMED: 64430354 (7) BMI 50.0-59.9, adult ICD Codes: Z68.43 - Body mass index (BMI) 50-59.9, adult SNOMED: 640869107, 603273471 Assessment/Plan advance diet ppi bid fu nephrology consider EGD if needed stool ob repeat labs Subjective ROS Limited/Unobtainable: Yes Allergies: Coded Allergies: NO KNOWN ALLERGIES (Unverified Allergy, Unknown, 07/06/15) Subjective feeling better Objective Last 24 Hour Vital Signs Date Time Temp Pulse Resp B/P (MAP) Pulse Ox O2 Delivery O2 Flow Rate FiO2 10/04/18 04:00 97.3 95 18 105/72 (83) 99 10/04/18 00:00 97.4 95 17 109/72 (84) 99 10/03/18 21:00 Room Air 10/03/18 20:00 98.1 96 16 112/77 (89) 95 10/03/18 16:00 97.6 98 19 129/86 (100) 98 10/03/18 12:00 98.4 111 20 130/87 (101) 96 10/03/18 10:38 Room Air 10/03/18 09:00 Room Air 10/03/18 08:00 97.6 112 19 151/85 (107) 96 Intake and Output 10/03/18 10/04/18 19:00 07:00 Intake Total 1992 ml 650 ml Balance 1992 ml 650 ml Intake Oral 1992 ml 650 ml # Voids 2 2 Laboratory Tests 10/04/18 04:30: White Blood Count 7.1, Red Blood Count 4.48L, Hemoglobin 13.3L, Hematocrit 40.4L , Mean Corpuscular Volume 90, Mean Corpuscular Hemoglobin 29.6, Mean Corpuscular Hemoglobin Concent 32.9, Red Cell Distribution Width 13.5, Platelet Count 420, Mean Platelet Volume 5.0L, Neutrophils (%) (Auto) 49.1, Lymphocytes ( %) (Auto) 40.0, Monocytes (%) (Auto) 8.6, Eosinophils (%) (Auto) 1.5, Basophils (%) (Auto) 0.8, Sodium Level 136, Potassium Level 4.1, Chloride Level 103, Carbon Dioxide Level 31, Anion Gap 2L, Blood Urea Nitrogen 24H, Creatinine 0.9, Estimat Glomerular Filtration Rate > 60, Glucose Level 84, Hemoglobin A1c 5.8, Uric Acid 10.4H, Calcium Level 7.7L, Phosphorus Level 4.1, Magnesium Level 2.1, Total Bilirubin 0.3, Gamma Glutamyl Transpeptidase 31, Aspartate Amino Transf ( AST/SGOT) 19, Alanine Aminotransferase (ALT/SGPT) 15, Alkaline Phosphatase 60, Pro-B-Type Natriuretic Peptide 846H, Total Protein 4.8L, Albumin 1.0L, Globulin 3.8, Albumin/Globulin Ratio 0.3L, Triglycerides Level 205H, Cholesterol Level 329H, LDL Cholesterol 250H, HDL Cholesterol 51, Cholesterol/HDL Ratio 6.5H, Thyroid Stimulating Hormone (TSH) 3.823H Height (Feet): 5 Height (Inches): 10.00 Weight (Pounds): 354 General Appearance: alert EENT: normal ENT inspection Neck: supple Cardiovascular: normal rate Respiratory/Chest: decreased breath sounds Abdomen: normal bowel sounds, non tender, soft Extremities: non-tender Scar Ramos MD Oct 04, 2018 07:48
[2018-10-04 08:00] VITALS: BP 113/75
--- NOTE | 2018-10-04 08:05 | NUR ---
NURSE NOTES: Received patient on bed, awake with family member at bedside. PICC line upper left arm double lumen is intact and patent. Bed in low and locked position, call light in reach. Patient denies shortness of breath and says he has pain level of 3. Room board updated, will continue to monitor.
[2018-10-04] MEDS: Pantoprazole Inj IVP SCH ×2 (09:13→20:03)
[2018-10-04] MEDS: Morphine Sulfate 4mg/ml Inj (IV USE ONLY) IVP PRN (09:15)
[2018-10-04 12:00] VITALS: BP 126/83
--- NOTE | 2018-10-04 14:36 | Nephrology Progress Note ---
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 Subjective ROS Limited/Unobtainable: No Constitutional: Reports: malaise Objective Objective Last 24 Hour Vital Signs Date Time Temp Pulse Resp B/P (MAP) Pulse Ox O2 Delivery O2 Flow Rate FiO2 10/04/18 12:00 98.6 96 21 126/83 (97) 96 10/04/18 09:00 Room Air 10/04/18 08:00 97.5 94 19 113/75 (88) 97 10/04/18 04:00 97.3 95 18 105/72 (83) 99 10/04/18 00:00 97.4 95 17 109/72 (84) 99 10/03/18 21:00 Room Air 10/03/18 20:00 98.1 96 16 112/77 (89) 95 10/03/18 16:00 97.6 98 19 129/86 (100) 98 Intake and Output 10/03/18 10/04/18 19:00 07:00 Intake Total 1992 ml 650 ml Balance 1992 ml 650 ml Intake Oral 1992 ml 650 ml # Voids 2 2 Laboratory Tests 10/04/18 04:30: White Blood Count 7.1, Red Blood Count 4.48L, Hemoglobin 13.3L, Hematocrit 40.4L , Mean Corpuscular Volume 90, Mean Corpuscular Hemoglobin 29.6, Mean Corpuscular Hemoglobin Concent 32.9, Red Cell Distribution Width 13.5, Platelet Count 420, Mean Platelet Volume 5.0L, Neutrophils (%) (Auto) 49.1, Lymphocytes ( %) (Auto) 40.0, Monocytes (%) (Auto) 8.6, Eosinophils (%) (Auto) 1.5, Basophils (%) (Auto) 0.8, Sodium Level 136, Potassium Level 4.1, Chloride Level 103, Carbon Dioxide Level 31, Anion Gap 2L, Blood Urea Nitrogen 24H, Creatinine 0.9, Estimat Glomerular Filtration Rate > 60, Glucose Level 84, Hemoglobin A1c 5.8, Uric Acid 10.4H, Calcium Level 7.7L, Phosphorus Level 4.1, Magnesium Level 2.1, Total Bilirubin 0.3, Gamma Glutamyl Transpeptidase 31, Aspartate Amino Transf ( AST/SGOT) 19, Alanine Aminotransferase (ALT/SGPT) 15, Alkaline Phosphatase 60, Pro-B-Type Natriuretic Peptide 846H, Total Protein 4.8L, Albumin 1.0L, Globulin 3.8, Albumin/Globulin Ratio 0.3L, Triglycerides Level 205H, Cholesterol Level 329H, LDL Cholesterol 250H, HDL Cholesterol 51, Cholesterol/HDL Ratio 6.5H, Thyroid Stimulating Hormone (TSH) 3.823H Height (Feet): 5 Height (Inches): 10.00 Weight (Pounds): 354 General Appearance: no apparent distress Cardiovascular: normal rate Respiratory/Chest: decreased breath sounds Abdomen: distended, other - obese Aleks Pugh MD Oct 04, 2018 14:36
--- NOTE | 2018-10-04 14:56 | Internal Med Progress Note ---
Subjective Physician Name Augie Cohen Attending Physician Augie Cohen MD Current Medications Medications (Trade) Dose Ordered Sig/Luca Route PRN Reason Start Time Stop Time Status Last Admin Dose Admin Acetaminophen (Tylenol) 650 mg Q6H PRN ORAL FEVER T>100.5 10/02/18 23:15 11/01/18 23:14 Allopurinol (Allopurinol) 300 mg DAILY ORAL 10/05/18 09:00 11/04/18 08:59 Allopurinol (Allopurinol) 300 mg ONCE ORAL 10/04/18 14:30 10/04/18 15:30 Aspirin (ASA) 81 mg DAILY ORAL 10/03/18 09:00 11/02/18 08:59 10/03/18 10:44 Chlorhexidine Gluconate (Dulce Maria-Hex 2%) 1 applic DAILY@1999 TOPIC 10/03/18 20:00 11/02/18 19:59 10/03/18 21:12 Heparin Sodium (Porcine) (Heparin 5000 units/ml) 5,000 units EVERY 12 HOURS SUBQ 10/03/18 09:00 11/02/18 08:59 10/03/18 21:25 Hydromorphone HCl (Dilaudid) 0.5 mg Q4H PRN IVP For Pain 10/04/18 14:45 10/11/18 14:44 Ondansetron HCl (Zofran) 4 mg Q4H PRN IVP Nausea & Vomiting 10/02/18 23:15 11/01/18 23:14 Pantoprazole (Protonix) 40 mg EVERY 12 HOURS IVP 10/03/18 21:00 11/02/18 20:59 10/04/18 09:13 Prednisone (predniSONE) 40 mg DAILY ORAL 10/04/18 09:00 11/02/18 08:59 10/04/18 09:14 Sucralfate (Carafate) 1 gm FOUR TIMES A DAY ORAL 10/04/18 18:00 11/03/18 17:59 Allergies: Coded Allergies: NO KNOWN ALLERGIES (Unverified Allergy, Unknown, 07/06/15) Subjective awake, alert, responsive, less abdominal pain, No SOB or CP. Objective Last Vital Signs Date Time Temp Pulse Resp B/P (MAP) Pulse Ox O2 Delivery O2 Flow Rate FiO2 10/04/18 12:00 98.6 96 21 126/83 (97) 96 10/04/18 09:00 Room Air Laboratory Tests Test 10/04/18 04:30 White Blood Count 7.1 K/UL (4.8-10.8) Red Blood Count 4.48 M/UL (4.70-6.10) L Hemoglobin 13.3 G/DL (14.2-18.0) L Hematocrit 40.4 % (42.0-52.0) L Mean Corpuscular Volume 90 FL (80-99) Mean Corpuscular Hemoglobin 29.6 PG (27.0-31.0) Mean Corpuscular Hemoglobin Concent 32.9 G/DL (32.0-36.0) Red Cell Distribution Width 13.5 % (11.6-14.8) Platelet Count 420 K/UL (150-450) Mean Platelet Volume 5.0 FL (6.5-10.1) L Neutrophils (%) (Auto) 49.1 % (45.0-75.0) Lymphocytes (%) (Auto) 40.0 % (20.0-45.0) Monocytes (%) (Auto) 8.6 % (1.0-10.0) Eosinophils (%) (Auto) 1.5 % (0.0-3.0) Basophils (%) (Auto) 0.8 % (0.0-2.0) Sodium Level 136 MMOL/L (136-145) Potassium Level 4.1 MMOL/L (3.5-5.1) Chloride Level 103 MMOL/L (98-107) Carbon Dioxide Level 31 MMOL/L (21-32) Anion Gap 2 mmol/L (5-15) L Blood Urea Nitrogen 24 mg/dL (7-18) H Creatinine 0.9 MG/DL (0.55-1.30) Estimat Glomerular Filtration Rate > 60 mL/min (>60) Glucose Level 84 MG/DL (74-106) Hemoglobin A1c 5.8 % (4.3-6.0) Uric Acid 10.4 MG/DL (2.6-7.2) H Calcium Level 7.7 MG/DL (8.5-10.1) L Phosphorus Level 4.1 MG/DL (2.5-4.9) Magnesium Level 2.1 MG/DL (1.8-2.4) Total Bilirubin 0.3 MG/DL (0.2-1.0) Gamma Glutamyl Transpeptidase 31 U/L (5-85) Aspartate Amino Transf (AST/SGOT) 19 U/L (15-37) Alanine Aminotransferase (ALT/SGPT) 15 U/L (12-78) Alkaline Phosphatase 60 U/L (46-116) Pro-B-Type Natriuretic Peptide 846 pg/mL (0-125) H Total Protein 4.8 G/DL (6.4-8.2) L Albumin 1.0 G/DL (3.4-5.0) L Globulin 3.8 g/dL Albumin/Globulin Ratio 0.3 (1.0-2.7) L Triglycerides Level 205 MG/DL (30-150) H Cholesterol Level 329 MG/DL (< 200) H LDL Cholesterol 250 mg/dL (<100) H HDL Cholesterol 51 MG/DL (40-60) Cholesterol/HDL Ratio 6.5 (3.3-4.4) H Thyroid Stimulating Hormone (TSH) 3.823 uiU/mL (0.358-3.740) Microbiology Date/Time Source Procedure Growth Status 10/02/18 21:19 Urine,Clean Catch Urine Culture - Final Strep Agalactiae Group B Complete Intake and Output 10/03/18 10/04/18 19:00 07:00 Intake Total 1992 ml 650 ml Balance 1992 ml 650 ml Intake Oral 1993 ml 650 ml # Voids 2 2 Objective General: No acute distress, awake and alert HEENT: NCAT, sclera anicteric, PERRL, EOMI. Neck: Supple, no significant jugular venous distention, Lungs: Good inspiratory effort, clear to auscultation bilaterally, no Wheeze or Rales. Heart: Regular rate and rhythm, normal S1/S2, no murmurs/gallops Abdomen: soft, Less epigastric tenderness, nondistended. Normoactive bowel sounds, morbid obesity. / Rectal: Refused and deferred. Extremities: No Cyanosis , clubbing, +2 LE's edema. Neuro: A&O x 3, Able to move all extremities Skin: warm, no rashes or lesions Psych: Normal mood and affect Assessment/Plan Assessment/Plan ASSESSMENT: 1. Abdominal pain, most likely epigastric area and possible due to the peptic ulcer versus gastritis. 2. Nephrotic syndrome. 3. Morbid obesity. 4. History of gout. 5. Hypertension. 6. Morbid obesity. 7. Obstructive sleep apnea. PLAN: 1. Admit the patient to Med/Surg. 2. advance diet. 3. DVT prophylaxis. 4. Heparin subcutaneous. 5. Protonix 40 mg b.i.d. 6. Discussed case with Dr. Pugh from Nephrology. 7. Monitor laboratory closely. 8. Resume home medication. Augie Cohen M.D. Augie Cohen MD Oct 04, 2018 14:56
[2018-10-04] MEDS: Hydromorphone 0.5mg/0.5ml inj IVP PRN ×2 (15:22→20:33)
[2018-10-04 16:17] VITALS: BP 131/81
--- NOTE | 2018-10-04 16:22 | Pulmonology Progress Note ---
Assessment/Plan Problems: (1) Abdominal pain (2) DIVYA (obstructive sleep apnea) (3) HTN (hypertension) (4) Nephrotic syndrome (5) Edema Assessment/Plan symptomatic treatment improving 24 hour urine collection GI evaluation Subjective ROS Limited/Unobtainable: No Constitutional: Reports: no symptoms HEENT: Repors: no symptoms Respiratory: Reports: no symptoms Allergies: Coded Allergies: NO KNOWN ALLERGIES (Unverified Allergy, Unknown, 07/06/15) Objective Last 24 Hour Vital Signs Date Time Temp Pulse Resp B/P (MAP) Pulse Ox O2 Delivery O2 Flow Rate FiO2 10/04/18 16:17 98.6 67 19 131/81 (98) 99 10/04/18 12:00 98.6 96 21 126/83 (97) 96 10/04/18 09:00 Room Air 10/04/18 08:00 97.5 94 19 113/75 (88) 97 10/04/18 04:00 97.3 95 18 105/72 (83) 99 10/04/18 00:00 97.4 95 17 109/72 (84) 99 10/03/18 21:00 Room Air 10/03/18 20:00 98.1 96 16 112/77 (89) 95 Intake and Output 10/03/18 10/04/18 19:00 07:00 Intake Total 1992 ml 650 ml Balance 1992 ml 650 ml Intake Oral 1992 ml 650 ml # Voids 2 2 General Appearance: WD/WN HEENT: normocephalic, atraumatic Respiratory/Chest: chest wall non-tender, lungs clear Cardiovascular: normal peripheral pulses, normal rate Abdomen: soft, non tender, non distended Extremities: no cyanosis Skin: no rash Microbiology Date/Time Source Procedure Growth Status 10/02/18 21:19 Urine,Clean Catch Urine Culture - Final Strep Agalactiae Group B Complete Laboratory Tests 10/04/18 04:30: White Blood Count 7.1, Red Blood Count 4.48L, Hemoglobin 13.3L, Hematocrit 40.4L , Mean Corpuscular Volume 90, Mean Corpuscular Hemoglobin 29.6, Mean Corpuscular Hemoglobin Concent 32.9, Red Cell Distribution Width 13.5, Platelet Count 420, Mean Platelet Volume 5.0L, Neutrophils (%) (Auto) 49.1, Lymphocytes ( %) (Auto) 40.0, Monocytes (%) (Auto) 8.6, Eosinophils (%) (Auto) 1.5, Basophils (%) (Auto) 0.8, Sodium Level 136, Potassium Level 4.1, Chloride Level 103, Carbon Dioxide Level 31, Anion Gap 2L, Blood Urea Nitrogen 24H, Creatinine 0.9, Estimat Glomerular Filtration Rate > 60, Glucose Level 84, Hemoglobin A1c 5.8, Uric Acid 10.4H, Calcium Level 7.7L, Phosphorus Level 4.1, Magnesium Level 2.1, Total Bilirubin 0.3, Gamma Glutamyl Transpeptidase 31, Aspartate Amino Transf ( AST/SGOT) 19, Alanine Aminotransferase (ALT/SGPT) 15, Alkaline Phosphatase 60, Pro-B-Type Natriuretic Peptide 846H, Total Protein 4.8L, Albumin 1.0L, Globulin 3.8, Albumin/Globulin Ratio 0.3L, Triglycerides Level 205H, Cholesterol Level 329H, LDL Cholesterol 250H, HDL Cholesterol 51, Cholesterol/HDL Ratio 6.5H, Thyroid Stimulating Hormone (TSH) 3.823H Current Medications Medications (Trade) Dose Ordered Sig/Luca Route PRN Reason Start Time Stop Time Status Last Admin Dose Admin Acetaminophen (Tylenol) 650 mg Q6H PRN ORAL FEVER T>100.5 10/02/18 23:15 11/01/18 23:14 Allopurinol (Allopurinol) 300 mg DAILY ORAL 10/05/18 09:00 11/04/18 08:59 Aspirin (ASA) 81 mg DAILY ORAL 10/03/18 09:00 11/02/18 08:59 10/03/18 10:44 Chlorhexidine Gluconate (Dulce Maria-Hex 2%) 1 applic DAILY@1999 TOPIC 10/03/18 20:00 11/02/18 19:59 10/03/18 21:12 Heparin Sodium (Porcine) (Heparin 5000 units/ml) 5,000 units EVERY 12 HOURS SUBQ 10/03/18 09:00 11/02/18 08:59 10/03/18 21:25 Hydromorphone HCl (Dilaudid) 0.5 mg Q4H PRN IVP For Pain 10/04/18 14:45 10/11/18 14:44 10/04/18 15:22 Ondansetron HCl (Zofran) 4 mg Q4H PRN IVP Nausea & Vomiting 10/02/18 23:15 11/01/18 23:14 Pantoprazole (Protonix) 40 mg EVERY 12 HOURS IVP 10/03/18 21:00 11/02/18 20:59 10/04/18 09:13 Prednisone (predniSONE) 40 mg DAILY ORAL 10/04/18 09:00 11/02/18 08:59 10/04/18 09:14 Sucralfate (Carafate) 1 gm FOUR TIMES A DAY ORAL 10/04/18 18:00 11/03/18 17:59 Robe Fall MD Oct 04, 2018 16:22
[2018-10-04] MEDS: Sucralfate 1gm tab ORAL SCH ×2 (17:37→20:03)
--- NOTE | 2018-10-04 19:31 | NUR ---
HAND-OFF: Report given to IRMA Uribe.
--- NOTE | 2018-10-04 19:32 | NUR ---
NURSE NOTES: Received report & pt from Monika Vasquez RN. Pt lying in bed, a&ox4, in room air. No s/s of acute distress & c/o 04/30 pain. Will give PRN pain med when due & pt verbalized understanding. PICC site intact & S/L'd. OB stool specimen needed & pt aware. Provided pt with toilet hat & told pt to call RN once able to pass BM. 12hr urine collection to end @ 2300 & pt is also aware. Bed in lowest position, call light within reach. Will continue to monitor. Addendum: 10/05/18 at 0501 by Fatuma Uribe RN CORRECTION: Caesar Vasquez RN
[2018-10-04 20:00] VITALS: BP 131/84
[2018-10-04] MEDS: Dyna-Hex 2% Top Sol 2oz TOPIC SCH (20:03)
[2018-10-04] MEDS: Heparin 5000 units/ml inj SUBQ SCH (20:04)
--- NOTE | 2018-10-04 23:00 | NUR ---
NURSE NOTES: 24hour urine collection container sent down to lab. Reminded pt to call RN for stool specimen for OB stool.
[2018-10-05] VITALS: BP 116/72
[2018-10-05] MEDS: Hydromorphone 0.5mg/0.5ml inj IVP PRN ×2 (02:44→08:58)
[2018-10-05 04:00] VITALS: BP 107/68
[2018-10-05 06:33] LABS: BASOPHILS % (AUTO) 0.8 % (0.0-2.0); EOSINOPHILS % (AUTO) 0.6 % (0.0-3.0); HEMATOCRIT 37.7 % (42.0-52.0); HEMOGLOBIN 12.6 G/DL (14.2-18.0); LYMPHOCYTES % (AUTO) 32.2 % (20.0-45.0); MEAN CORPUSCULAR VOLUME 88 FL (80-99); MONOCYTES % (AUTO) 8.2 % (1.0-10.0); NEUTROPHILS % (AUTO) 58.1 % (45.0-75.0); PLATELET COUNT 386 K/UL (150-450); RED BLOOD COUNT 4.26 M/UL (4.70-6.10); RED CELL DISTRIBUTION WIDTH 12.6 % (11.6-14.8); WHITE BLOOD COUNT 10.2 K/UL (4.8-10.8)
--- NOTE | 2018-10-05 06:45 | NUR ---
NURSE NOTES: Pt didn't have BM on my shift. Will endorse to AM shift for OB stool collection.
--- NOTE | 2018-10-05 07:17 | NUR ---
HAND-OFF: Report given to Caesar Vasquez RN.
[2018-10-05 07:37] LABS: ALANINE AMINOTRANSFERASE 15 U/L (12-78); ALBUMIN/GLOBULIN RATIO 0.3 (1.0-2.7); ALKALINE PHOSPHATASE 66 U/L (46-116); AMYLASE 46 U/L (25-115); ANION GAP 4 mmol/L (5-15); ASPARTATE AMINO TRANSFERASE 20 U/L (15-37); BILIRUBIN,TOTAL 0.3 MG/DL (0.2-1.0); BLOOD UREA NITROGEN 20 mg/dL (7-18); CALCIUM 7.9 MG/DL (8.5-10.1); CARBON DIOXIDE 29 MMOL/L (21-32); CHLORIDE 103 MMOL/L (98-107); CREATININE 0.7 MG/DL (0.55-1.30); POTASSIUM 3.9 MMOL/L (3.5-5.1); SODIUM 136 MMOL/L (136-145)
--- NOTE | 2018-10-05 07:50 | NUR ---
NURSE NOTES: Received patient on bed, awake. PICC line lumens intact and patent. Bed in low and locked position, call light in reach. No signs of respiratory distress patient, denies pain. Room board updated, will continue to monitor.
[2018-10-05 08:00] VITALS: BP 107/65
[2018-10-05] MEDS: Aspirin Baby 81mg ORAL SCH (08:43)
[2018-10-05] MEDS: Pantoprazole Inj IVP SCH (08:44)
[2018-10-05] MEDS: Sucralfate 1gm tab ORAL SCH ×2 (08:44→12:40)
[2018-10-05] MEDS: Heparin 5000 units/ml inj SUBQ SCH (08:45)
[2018-10-05 12:00] VITALS: BP 121/93
--- NOTE | 2018-10-05 12:10 | General Progress Note ---
Assessment/Plan Problem List: (1) Cigarette smoker ICD Codes: F17.210 - Nicotine dependence, cigarettes, uncomplicated SNOMED: 45865134 (2) Abdominal pain ICD Codes: R10.9 - Unspecified abdominal pain SNOMED: 32008655, 528178644 Qualifiers: Qualified Codes: R10.13 - Epigastric pain (3) Nephrotic syndrome ICD Codes: N04.9 - Nephrotic syndrome with unspecified morphologic changes SNOMED: 69008590 (4) HTN (hypertension) ICD Codes: I10 - Essential (primary) hypertension SNOMED: 74853793 (5) DIVYA (obstructive sleep apnea) ICD Codes: G47.33 - Obstructive sleep apnea (adult) (pediatric) SNOMED: 90933700 (6) Gouty arthritis ICD Codes: M10.9 - Gout, unspecified SNOMED: 12410061 (7) BMI 50.0-59.9, adult ICD Codes: Z68.43 - Body mass index (BMI) 50-59.9, adult SNOMED: 992729568, 811831179 Assessment/Plan on diet ppi bid fu nephrology consider EGD if needed stool ob repeat labs Subjective ROS Limited/Unobtainable: Yes Allergies: Coded Allergies: NO KNOWN ALLERGIES (Unverified Allergy, Unknown, 07/06/15) Subjective feeling better Objective Last 24 Hour Vital Signs Date Time Temp Pulse Resp B/P (MAP) Pulse Ox O2 Delivery O2 Flow Rate FiO2 10/05/18 09:00 Room Air 10/05/18 08:00 97.9 87 20 107/65 (79) 100 10/05/18 04:00 97.4 87 16 107/68 (81) 95 10/05/18 00:00 97.3 95 17 116/72 (87) 97 10/04/18 21:00 Room Air 10/04/18 20:00 98.2 102 18 131/84 (100) 95 10/04/18 16:17 98.6 67 19 131/81 (98) 99 Intake and Output 10/04/18 10/05/18 19:00 07:00 Intake Total 1440 ml 480 ml Balance 1440 ml 480 ml Intake Oral 1440 ml 480 ml # Voids 2 Laboratory Tests 10/04/18 23:00: Urine Collection Time 24, Urine Total Volume 1500, Urine Total Protein mg/dL 411 , Urine Total Protein 24 Hour 6165.0H 3/17/19 05:45: White Blood Count 10.2, Red Blood Count 4.26L, Hemoglobin 12.6L, Hematocrit 37.7L, Mean Corpuscular Volume 88, Mean Corpuscular Hemoglobin 29.5, Mean Corpuscular Hemoglobin Concent 33.3, Red Cell Distribution Width 12.6, Platelet Count 386, Mean Platelet Volume 5.0L, Neutrophils (%) (Auto) 58.1, Lymphocytes ( %) (Auto) 32.2, Monocytes (%) (Auto) 8.2, Eosinophils (%) (Auto) 0.6, Basophils (%) (Auto) 0.8, Sodium Level 136, Potassium Level 3.9, Chloride Level 103, Carbon Dioxide Level 29, Anion Gap 4L, Blood Urea Nitrogen 20H, Creatinine 0.7, Estimat Glomerular Filtration Rate > 60, Glucose Level 84, Calcium Level 7.9L, Total Bilirubin 0.3, Aspartate Amino Transf (AST/SGOT) 20, Alanine Aminotransferase (ALT/SGPT) 15, Alkaline Phosphatase 66, Total Protein 4.7L, Albumin 1.0L, Globulin 3.7, Albumin/Globulin Ratio 0.3L, Amylase Level 46, Lipase 164 Height (Feet): 5 Height (Inches): 10.00 Weight (Pounds): 354 General Appearance: alert EENT: normal ENT inspection Neck: supple Cardiovascular: normal rate Respiratory/Chest: decreased breath sounds Abdomen: normal bowel sounds, non tender, soft Extremities: non-tender Scar Ramos MD Oct 05, 2018 12:10
--- NOTE | 2018-10-05 14:39 | Internal Med Progress Note ---
Subjective Physician Name Augie Cohen Attending Physician Augie Cohen MD Current Medications Medications (Trade) Dose Ordered Sig/Luca Route PRN Reason Start Time Stop Time Status Last Admin Dose Admin Acetaminophen (Tylenol) 650 mg Q6H PRN ORAL FEVER T>100.5 10/02/18 23:15 11/01/18 23:14 Allopurinol (Allopurinol) 300 mg DAILY ORAL 10/05/18 09:00 11/04/18 08:59 10/05/18 08:44 Aspirin (ASA) 81 mg DAILY ORAL 10/03/18 09:00 11/02/18 08:59 10/05/18 08:43 Chlorhexidine Gluconate (Dulce Maria-Hex 2%) 1 applic DAILY@1999 TOPIC 10/03/18 20:00 11/02/18 19:59 10/04/18 20:03 Heparin Sodium (Porcine) (Heparin 5000 units/ml) 5,000 units EVERY 12 HOURS SUBQ 10/03/18 09:00 11/02/18 08:59 10/05/18 08:45 Hydromorphone HCl (Dilaudid) 0.5 mg Q4H PRN IVP For Pain 10/04/18 14:45 10/11/18 14:44 10/05/18 08:58 Ondansetron HCl (Zofran) 4 mg Q4H PRN IVP Nausea & Vomiting 10/02/18 23:15 11/01/18 23:14 Pantoprazole (Protonix) 40 mg EVERY 12 HOURS IVP 10/03/18 21:00 11/02/18 20:59 10/05/18 08:44 Prednisone (predniSONE) 40 mg DAILY ORAL 10/04/18 09:00 11/02/18 08:59 10/05/18 08:44 Sucralfate (Carafate) 1 gm FOUR TIMES A DAY ORAL 10/04/18 18:00 11/03/18 17:59 10/05/18 12:40 Allergies: Coded Allergies: NO KNOWN ALLERGIES (Unverified Allergy, Unknown, 07/06/15) Subjective awake, alert, responsive, No abdominal pain, No SOB or CP. Objective Last Vital Signs Date Time Temp Pulse Resp B/P (MAP) Pulse Ox O2 Delivery O2 Flow Rate FiO2 10/05/18 12:00 98.1 94 20 121/93 (102) 100 3/17/19 09:00 Room Air Laboratory Tests Test 10/04/18 23:00 10/05/18 05:45 Urine Collection Time 24 HRS Urine Total Volume 1500 ML Urine Total Protein mg/dL 411 mg/dL Urine Total Protein 24 Hour 6165.0 mg/24hr (< 150) H White Blood Count 10.2 K/UL (4.8-10.8) Red Blood Count 4.26 M/UL (4.70-6.10) L Hemoglobin 12.6 G/DL (14.2-18.0) L Hematocrit 37.7 % (42.0-52.0) L Mean Corpuscular Volume 88 FL (80-99) Mean Corpuscular Hemoglobin 29.5 PG (27.0-31.0) Mean Corpuscular Hemoglobin Concent 33.3 G/DL (32.0-36.0) Red Cell Distribution Width 12.6 % (11.6-14.8) Platelet Count 386 K/UL (150-450) Mean Platelet Volume 5.0 FL (6.5-10.1) L Neutrophils (%) (Auto) 58.1 % (45.0-75.0) Lymphocytes (%) (Auto) 32.2 % (20.0-45.0) Monocytes (%) (Auto) 8.2 % (1.0-10.0) Eosinophils (%) (Auto) 0.6 % (0.0-3.0) Basophils (%) (Auto) 0.8 % (0.0-2.0) Sodium Level 136 MMOL/L (136-145) Potassium Level 3.9 MMOL/L (3.5-5.1) Chloride Level 103 MMOL/L (98-107) Carbon Dioxide Level 29 MMOL/L (21-32) Anion Gap 4 mmol/L (5-15) L Blood Urea Nitrogen 20 mg/dL (7-18) H Creatinine 0.7 MG/DL (0.55-1.30) Estimat Glomerular Filtration Rate > 60 mL/min (>60) Glucose Level 84 MG/DL (74-106) Calcium Level 7.9 MG/DL (8.5-10.1) L Total Bilirubin 0.3 MG/DL (0.2-1.0) Aspartate Amino Transf (AST/SGOT) 20 U/L (15-37) Alanine Aminotransferase (ALT/SGPT) 15 U/L (12-78) Alkaline Phosphatase 66 U/L (46-116) Total Protein 4.7 G/DL (6.4-8.2) L Albumin 1.0 G/DL (3.4-5.0) L Globulin 3.7 g/dL Albumin/Globulin Ratio 0.3 (1.0-2.7) L Amylase Level 46 U/L (25-115) Lipase 164 U/L (73-393) Microbiology Date/Time Source Procedure Growth Status 10/02/18 21:19 Urine,Clean Catch Urine Culture - Final Strep Agalactiae Group B Complete Intake and Output 10/04/18 10/05/18 19:00 07:00 Intake Total 1440 ml 480 ml Balance 1440 ml 480 ml Intake Oral 1440 ml 480 ml # Voids 2 Objective General: No acute distress, awake and alert HEENT: NCAT, sclera anicteric, PERRL, EOMI. Neck: Supple, no significant jugular venous distention, Lungs: Good inspiratory effort, clear to auscultation bilaterally, no Wheeze or Rales. Heart: Regular rate and rhythm, normal S1/S2, no murmurs/gallops Abdomen: soft, Less epigastric tenderness, nondistended. Normoactive bowel sounds, morbid obesity. / Rectal: Refused and deferred. Extremities: No Cyanosis , clubbing, +2 LE's edema. Neuro: A&O x 3, Able to move all extremities Skin: warm, no rashes or lesions Psych: Normal mood and affect Assessment/Plan Assessment/Plan ASSESSMENT: 1. Abdominal pain, most likely epigastric area and possible due to the peptic ulcer versus gastritis. 2. Nephrotic syndrome. 3. Morbid obesity. 4. History of gout. 5. Hypertension. 6. Morbid obesity. 7. Obstructive sleep apnea. PLAN: 1. Admit the patient to Med/Surg. 2. advance diet. 3. DVT prophylaxis. 4. Heparin subcutaneous. 5. Protonix 40 mg b.i.d. 6. Discussed case with Dr. Pugh from Nephrology. 7. Monitor laboratory closely. 8. DC home today Hiram Fuentes,Augie MERCHANT Oct 05, 2018 14:39
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
--- NOTE | 2018-10-05 16:00 | NUR ---
NURSE NOTES: Patient refused 1600 vitals.
--- NOTE | 2018-10-05 16:50 | NUR ---
NURSE NOTES: Patient requested to leave and charge nurse Gabi said she would have to take out the PICC line. Patient agreed and it was removed and covered. He was instructed to wait ten minutes to ensure the area was not bleeding. She also said he would have to sign paperwork before he left. Patient agreed.
--- NOTE | 2018-10-05 16:56 | NUR ---
NURSE NOTES: Patient left the floor without signing AMA papers or discharge papers. Patient refused to sign papers or let staff cut ID band. PICC line was removed prior. Nursing supervisor putty and caluking and charge nurse aware.
--- NOTE | 2018-10-05 17:46 | Nephrology Progress Note ---
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 Subjective ROS Limited/Unobtainable: No Objective Objective Last 24 Hour Vital Signs Date Time Temp Pulse Resp B/P (MAP) Pulse Ox O2 Delivery O2 Flow Rate FiO2 10/05/18 12:00 98.1 94 20 121/93 (102) 100 10/05/18 09:00 Room Air 10/05/18 08:00 97.9 87 20 107/65 (79) 100 10/05/18 04:00 97.4 87 16 107/68 (81) 95 10/05/18 00:00 97.3 95 17 116/72 (87) 97 10/04/18 21:00 Room Air 10/04/18 20:00 98.2 102 18 131/84 (100) 95 Intake and Output 10/04/18 10/05/18 19:00 07:00 Intake Total 1440 ml 480 ml Balance 1440 ml 480 ml Intake Oral 1440 ml 480 ml # Voids 2 Laboratory Tests 10/04/18 23:00: Urine Collection Time 24, Urine Total Volume 1500, Urine Total Protein mg/dL 411 , Urine Total Protein 24 Hour 6165.0H 10/05/18 05:45: White Blood Count 10.2, Red Blood Count 4.26L, Hemoglobin 12.6L, Hematocrit 37.7L, Mean Corpuscular Volume 88, Mean Corpuscular Hemoglobin 29.5, Mean Corpuscular Hemoglobin Concent 33.3, Red Cell Distribution Width 12.6, Platelet Count 386, Mean Platelet Volume 5.0L, Neutrophils (%) (Auto) 58.1, Lymphocytes ( %) (Auto) 32.2, Monocytes (%) (Auto) 8.2, Eosinophils (%) (Auto) 0.6, Basophils (%) (Auto) 0.8, Sodium Level 136, Potassium Level 3.9, Chloride Level 103, Carbon Dioxide Level 29, Anion Gap 4L, Blood Urea Nitrogen 20H, Creatinine 0.7, Estimat Glomerular Filtration Rate > 60, Glucose Level 84, Calcium Level 7.9L, Total Bilirubin 0.3, Aspartate Amino Transf (AST/SGOT) 20, Alanine Aminotransferase (ALT/SGPT) 15, Alkaline Phosphatase 66, Total Protein 4.7L, Albumin 1.0L, Globulin 3.7, Albumin/Globulin Ratio 0.3L, Amylase Level 46, Lipase 164 Height (Feet): 5 Height (Inches): 10.00 Weight (Pounds): 354 General Appearance: no apparent distress Objective no change Aleks Pugh MD Oct 05, 2018 17:45
--- NOTE | 2018-10-08 12:05 | Discharge Summary ---
Discharge Summary Discharge Summary _ DATE OF ADMISSION: 10/02/2018 DATE OF DISCHARGE: 10/05/2018 DISCHARGED BY : Dr. Cohen REASON FOR ADMISSION: 43 years old male with past medical history of gouty arthritis, history of nephrotic syndrome, hypertension, obstructive sleep apnea, morbid obesity, cigarette smoker, history of DVT in the past currently on aspirin only, presented to emergency department with severe epigastric pain. Patient reported prior episodes of abdominal pain related to nephrotic syndrome. He felt nauseated , but denied any vomiting. Upon evaluation patient was tachycardic , otherwise stable vital signs. Laboratory workup revealed leukocytosis with WBC 12.3 h, emoglobin hematocrit were stable. Stable electrolytes. BUN 37, creatinine 1.2. Uric acid 11.3. Stable LFT. Troponin - 0.001. CK 117. Albumin 1.0 Lipase 201 . Urinalysis revealed moderate bacteria, but no pyuria , +4 protein. EKG revealed sinus tachycardia, no acute ischemic changes Chest x-ray revealed no acute cardiopulmonary pathology. Patient was admitted for further management. CONSULTANTS: pulmonary Dr. Fall GI specialist Dr. Ramos facility engineer Dr. Pugh HOSPITAL COURSE: Patient admitted to medical surgical floor. Patient started on clear liquid diet and was advanced as tolerated. Nephrology , pulmonology and GI consults were requested. Patient started on DVT prophylaxis. Venous duplex bilateral lower extremity revealed no evidence of acute DVT. Patient started on GI prophylaxis. Home medications were resumed. 24 hours urine revealed over 6 g of protein. Patient was on allopurinol. High-protein low carbohydrate diet provided. Patient will need to follow-up as outpatient with facility engineer, given that this condition was chronic. Urine culture revealed strep group B with colony count 10-20 only. Renal parameters and electrolytes were closely monitored, electrolytes corrected as needed. Creatinine from 1.2 down to 0.7, and BUN from 37 down to 20. Uric acid trending down to 9.0 from initial 11.3. Continue allopurinol at home. Hemoglobin A1c 5.8. Lipid panel revealed elevated total cholesterol of 329, elevated LDL of 250, triglycerides 205. Patient was reluctant to start statin. Patient was counseled on low-fat low-cholesterol cardiac diet and ways to reduce weight. Abdominal ultrasound demonstrated no evidence of gallstones or dilated bile duct. Liver demonstrated diffusely increased echogenicity consistent with diffuse hepatocellular disease, most likely fatty changes. No evidence of hydronephrosis. GI specialist followed. Patient was on proton pump inhibitor twice a day and Carafate. Diet was advanced as tolerated. Patient was able to tolerate diet. GI specialist recommended consider EGD if needed and check stool for occult blood. Hemoglobin and hematocrit remained on the baseline. Prior to discharge hemoglobin 12.6, hematocrit 37.7. Lipase within normal range. Stable LFT. [employer] Grader followed. BiPAP provided at nighttime. Patient was encouraged compliance. Supplemental oxygen titrated as needed to keep pulse oximetry above 92%. Pulmonary toilet was on standby as needed. Pulse oximetry stable on room air, no evidence of respiratory distress. All consultants agreed that abdominal pain was likely epigastric and probably due to peptic ulcer versus gastritis due to use of steroids and nonsteroidal anti-inflammatory medication. Nonsteroidal anti-inflammatories were discontinued. Supportive care provided. Patient was stable for discharge home , outpatient follow-up with primary care provider and probably GI specialist for EGD. Follow-up with his own facility engineer. Patient initially declined to leave after he was discharged ; however later during the course of the day he left. FINAL DIAGNOSES: Epigastric abdominal pain, likely gastritis versus peptic ulcer secondary to steroids and nonsteroidal anti-inflammatory medication Nephrotic syndrome Gouty arthritis Hypertension Obstructive sleep apnea Morbid obesity Fatty liver Mixed hyperlipidemia DISCHARGE MEDICATIONS: See Medication Reconciliation list. DISCHARGE INSTRUCTIONS: Patient was discharged home ; follow-up with primary care provider in 1 week. I have been assigned to dictate discharge summary for this account. I was not involved in the patient's management. Bhavna Villarreal NP Oct 08, 2018 12:05
== END 2018-10-05 17:00 | disposition left against medical advice (07) | DRG 251 ==
LOC: EMR 18:20 → 3E 20:19 → EDBEDREQ 21:06
PROC: 02HV33Z Insertion of Infusion Device into Superior Vena Cava, Percutaneous Approach (ICD-10-PCS; principal; 2018-10-03)
DX: R10.13 Epigastric pain (principal); E66.01 Morbid (severe) obesity due to excess calories; K76.0 Fatty (change of) liver, not elsewhere classified; N04.9 Nephrotic syndrome with unspecified morphologic changes; Z68.43 Body mass index [BMI] 50.0-59.9, adult; K27.9 Peptic ulcer, site unspecified, unspecified as acute or chronic, without hemorrhage or perforation; K29.70 Gastritis, unspecified, without bleeding; T38.0X5A Adverse effect of glucocorticoids and synthetic analogues, initial encounter; M10.9 Gout, unspecified; I10 Essential (primary) hypertension; G47.33 Obstructive sleep apnea (adult) (pediatric); E78.2 Mixed hyperlipidemia; F17.210 Nicotine dependence, cigarettes, uncomplicated; Z86.718 Personal history of other venous thrombosis and embolism; Z79.82 Long term (current) use of aspirin
CPT/HCPCS: 36415; 36569; 71045; 76700; 76937; 80053; 80061; 81003; 81050; 82150; 82550; 82977; 83036; 83690; 83735; 83880; 84100; 84156; 84443; 84484; 84550; 85025; 85610; 85730; 86140; 87086; 93005; 93970; 96361; 96374; 96375; 96376; 99285; J2765